=== PATIENT | female | born 1980 | race Caucasian/White ===

== ENCOUNTER 2023-03-16 21:54 | Emergency (ER) | payer OTHER, SELFPAY ==
--- NOTE | 2023-03-16 22:00 | ED.ALCOHOL ---
HPI - Alcohol General Chief Complaint: ETOH/Substance Use Stated Complaint: ETOH Time Seen by Provider: 03/16/23 21:55 Source: patient Mode of arrival: EMS Limitations: no limitations History of Present Illness HPI narrative: Patient's anxiety fibromyalgia PTSD brought by EMS she had she been paranoid about people using drugs in her building and been calling [employer] multiple times patient had few shots of alcohol tonight Related Data Allergies Allergy/AdvReac Type Severity Reaction Status Date / Time codeine [CODEINE] Allergy Mild N/V Unverified 04/26/20 19:51 Review of Systems Review of Systems: Yes all other systems are reviewed and are negative Physical Exam ED Vital Signs: Vital Signs - 24 hr 03/16/23 22:05 03/16/23 22:20 Temperature 98.6 F 98.6 F Pulse Rate 104 H 116 H Respiratory Rate 16 22 H Blood Pressure 130/93 H 138/72 Pulse Oximetry 96 98 Oxygen Delivery Method Room Air Room Air BMI result Body Mass Index 23.2 Appearance: Alert. Oriented X3. No acute distress. Tearful Eyes: PERRLA, No Nystagmus ENT: Pharynx normal. Oral Mucosa moist Neck: Normal inspection. Neck supple. CVS: Normal heart rate and rhythm. Pulses normal. Respiratory: No respiratory distress. Equal air entry bilateral, no wheezing/rales/rhonchi Abdomen: Soft and nontender. Bowel sounds are present, no mass palpable, no CVA tenderness Skin: Skin warm and dry. Normal skin color. Normal skin turgor. Extremities: No lower extremity edema. No calf tenderness Neuro: Oriented X 3. No motor deficit. No sensory deficit.No cerebellar signs , cranial nerves II-XII intact Medical Decision Making Medical Decision Making MDM Narrative: Patient feels safe to go home ambulatory in the ER will follow with criminal justice social worker about the home situation feels safe at this time Discharge Plan Discharge Clinical Impression: Adjustment disorder with anxiety Patient Disposition: Home, Self-Care Instructions: Anxiety (ED) Additional Instructions: Follow-up with your therapist and social Work
[2023-03-16 22:05] VITALS: BP 130/93; PULSE 104; RESP 16; TEMP 37; O2SAT 96
--- NOTE | 2023-03-16 22:11 | MHC.EDTECH ---
PATIENT CAME VIA EMS ,PATIENT WAS CHANGE INTO HOSPITAL ATTIRE ,,VITALS SIGN TAKEN ,PT HAD 1 EMPTY NIP BOTTLE AND 2 OPEN NIP BOTTLE ,SECURITY CAME AND THROW IT AWAY .
[2023-03-16 22:20] VITALS: BP 138/72; PULSE 116; PULSE 140; RESP 22; TEMP 37; O2SAT 98; BMI 23.2
== END 2023-03-16 23:02 | disposition home or self-care (01) ==
PROVIDERS: Emergency Provider Internal Medicine; PCP Internal Medicine
DX: F43.22 Adjustment disorder with anxiety (principal); Z72.89 Other problems related to lifestyle; Z59.89 Other problems related to housing and economic circumstances
CPT/HCPCS: 99284

== ENCOUNTER 2023-05-06 01:03 | Emergency (ER) | payer OTHER, SELFPAY ==
[2023-05-06 01:11] VITALS: BP 117/81; PULSE 89; RESP 17; TEMP 37.1; O2SAT 98; BMI 21.9
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
[2023-05-06 01:39] LABS: MANUAL DIFF FLAG NO
[2023-05-06 01:41] LABS: Basophils Percent Auto 0.5 % (0-2); Eosinophils Absolute Auto 0.1 X10*3/uL (0.0-0.4); Eosinophils Percent Auto 1.8 % (0-4); Hematocrit 39.9 % (37.0-47.0); Hemoglobin 13.6 g/dl (12.0-16.0); Imm Gran Abs Auto 0.02 X10*3/uL (0.00-0.03); Imm Gran Pct Auto 0.3 % (0.0-0.4); Lymphocytes Absolute Auto 3.8 X10*3/uL (1.2-4.9); Lymphocytes Percent Auto 47.7 % (20-40); Mean Corpuscular HGB Conc 34.1 g/dl (31.0-35.0); Mean Corpuscular Volume 99.8 fL (80.0-98.0); Mean Platelet Volume 9.9 fL (9.4-12.3); Monocytes Absolute Auto 0.5 X10*3/uL (0.1-1.2); Neutrophils Absolute Auto 3.5 x10*3/uL (2.0-8.3); Neutrophils Percent Auto 43.7 % (45-73); Platelet Count 303 X10*3/uL (160-400); Red Cell Distribution Width 14.1 % (11.0-16.0)
[2023-05-06 01:42] LABS: Appearance Urine Cloudy; Color Urine Yellow; Glucose Urine UA Negative (Negative); Leukocyte Esterase Urine Negative (Negative); Nitrite Urine Positive (Negative); PH 5.5 (5.0-9.0); UMIC TRIGGER UA YES; UPreg QC Valid YES; Urine Blood Small (1+) (Negative); Urine Ketones Negative (Negative); Urine Pregnancy NEGATIVE (NEGATIVE); Urine Protein Negative (Neg-Trace)
[2023-05-06] MEDS: LORazepam 1 MG TABLET 2 MG PO (01:48)
[2023-05-06 01:50] LABS: Bacteria Urine 4+ (None Seen); RBC Urine 0-2 /HPF (0-2); WBC Urine 0-5 /HPF (0-5)
[2023-05-06 01:54] LABS: Ethanol 318 mg/dL
[2023-05-06 01:55] LABS: Amphetamine Screen Urine Not Detected (Not Detect); Barbiturates, Urine Not Detected (Not Detect); Benzodiazepines Screen Urine Not Detected (Not Detect); Cannabinoid Screen Urine POSITIVE (Not Detect); Cocaine Screen Urine Not Detected (Not Detect); Fentanyl, urine Not Detected (Not Detect); Opiate Screen Urine Not Detected (Not Detect); Phencyclidine Screen Urine Not Detected (Not Detect)
[2023-05-06 01:55] LABS: COVID-19 Test Negative (Negative); IDNOW Serial# 08D9AD1C
[2023-05-06] MEDS: Ibuprofen 800 MG TABLET PO (01:55)
[2023-05-06 01:56] LABS: Alanine Aminotransferase 20 U/L (0-31); Albumin Level 4.7 g/dL (3.5-5.0); Alkaline Phosphatase 60 U/L (39-117); Anion Gap 15 (12-20); Aspartate Amino Transferase 34 U/L (5-31); Bilirubin Total 0.3 mg/dL (0.0-1.0); Blood Urea Nitrogen 13 mg/dL (9-16); Calcium 9.8 mg/dL (8.4-10.2); Carbon Dioxide 24 mmol/L (22-29); Chloride 108 mmol/L (96-108); Creatinine Clr Calc Pharmacy 101.7; Estimated Glomerular Filt Rate > 60; Glucose Random 101 mg/dL (60-115); Potassium 4.1 mmol/L (3.3-5.1); Sodium 143 mmol/L (135-145); Total Protein 7.9 g/dL (6.5-8.0)
--- NOTE | 2023-05-06 05:52 | PC.NURSE ---
Patient currently in bed appears sleeping, sleeping since 024, Ativan 2 mg PO administered at 0148 for comfort as ordered by provider, med rec completed/pending provider's approval, VSS, patient will be clinically sober around 0930 am, behavior argumentative, verbally abusive, and at time threatening perhaps due to ETOH on board, Care consult ordered/pending evaluation, will continue to monitor.
--- NOTE | 2023-05-06 14:21 | MHC.CARE ---
Tw completed and faxed referral to [facility]
== END 2023-05-06 10:15 | disposition home or self-care (01) ==
PROVIDERS: Emergency Provider Emergency Medicine Emergency Medical Services; PCP Internal Medicine
DX: F33.1 Major depressive disorder, recurrent, moderate (principal); F10.920 Alcohol use, unspecified with intoxication, uncomplicated; Y90.8 Blood alcohol level of 240 mg/100 ml or more; R45.851 Suicidal ideations; F60.0 Paranoid personality disorder; F41.1 Generalized anxiety disorder; F43.0 Acute stress reaction; Z20.822 Contact with and (suspected) exposure to COVID-19; Z20.828 Contact with and (suspected) exposure to other viral communicable diseases; Z79.899 Other long term (current) drug therapy
CPT/HCPCS: 36415; 80053; 80307; 81001; 81025; 85025; 87635; 99284; S9485

== ENCOUNTER 2023-05-16 02:44 | Inpatient (IN) | payer OTHER, SELFPAY ==
[2023-05-16 02:58] VITALS: BP 100/79; BP 128/88; PULSE 93; PULSE 98; RESP 18; TEMP 36.7; O2SAT 97; BMI 23.5
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
[2023-05-16 03:30] VITALS: PULSE 86
--- NOTE | 2023-05-16 03:36 | PC.NURSE ---
security at bedside. pt changed into regular hospital attire at this time, pt belongings at bedside. at bedside discussing pt care.
[2023-05-16 03:43] LABS: Alanine Aminotransferase 13 U/L (0-31); Alkaline Phosphatase 70 U/L (39-117); Anion Gap 17 (12-20); Aspartate Amino Transferase 21 U/L (5-31); Bilirubin Direct 0.1 mg/dL (0.0-0.5); Bilirubin Total 0.4 mg/dL (0.0-1.0); Blood Urea Nitrogen 13 mg/dL (9-16); C Reactive Protein 8.34 mg/dL (< or = 0.50); Carbon Dioxide 22 mmol/L (22-29); Chloride 106 mmol/L (96-108); Creatinine Clr Calc Pharmacy 114.3; Estimated Glomerular Filt Rate > 60; Glucose Random 105 mg/dL (60-115); Potassium 3.6 mmol/L (3.3-5.1); Sodium 141 mmol/L (135-145); Total Protein 7.5 g/dL (6.5-8.0)
--- NOTE | 2023-05-16 04:40 | P.HPHOSP_ITS ---
History of Present Illness Date of Service: 06/10/23 Chief Complaint: redness, swelling of right knee 42 year old female with PTSD here with pain, swelling and rendness of right knee area. She fell on a porch step last May 07 and had an abrasion that has developed into open wound and surounding redness and pain --See picture. She took some left over antibiotics yesterda but no improvment. No fever, able to walk. Labs WBC 11, CRP 8 Review of Systems 2 Review of Systems: Gen: no fever Resp: no sob, no cough CV: no chest, no MCCANN, no leg edema GI: No n/v, no abd pain Neuro: No confusion MSK: pain around right reggie Yes all other systems are reviewed and are negative [facility] Medical History (Updated 05/16/23 @ 05:15 by Van Moreno MD) PTSD (post-traumatic stress disorder) Social History Alcohol intake: current Alcohol intake frequency: a few times a month Smoked in Last 30 Days: Yes Use of substances other than those prescribed or required for medical reasons: No Advance Directives: No Advance Directives Information Provided: Yes Meds Allergies Allergy/AdvReac Type Severity Reaction Status Date / Time codeine [CODEINE] Allergy Mild N/V Verified 05/16/23 03:06 Penicillins Allergy Stomach Verified 05/16/23 03:06 Upset Active Medications: Current Medications Vancomycin HCl 1,000 mg/Vancomycin HCl 750 mg/ Sodium Chloride 535 mls @ 267.5 mls/hr IV ONCE ONE Stop: 05/16/23 05:14 Last Admin: 05/16/23 04:08 Dose: 267.5 mls/hr Pharmacy Consult (Consult Rx Vancomycin Dosing) 1 each MISCELLANE DAILY PRN PRN Reason: Consult order Home Medications Medication Instructions Recorded Confirmed Last Taken Type amitriptyline 25 mg tablet 25 mg PO BEDTIME 05/06/23 05/06/23 Unknown History meloxicam 15 mg tablet 15 mg PO DAILY PRN pain 05/06/23 05/06/23 Unknown History Physical Exam 2 Vital Signs and Narrative: Vital Signs: Last Vital Signs Temp 98.1 F 05/16/23 02:58 Pulse 86 05/16/23 03:30 Resp 18 05/16/23 02:58 BP 100/79 05/16/23 02:58 Pulse Ox 97 05/16/23 02:58 O2 Del Method Room Air 05/16/23 02:58 BMI result Body Mass Index 23.5 Const: Other: Constitutional: Alert, in no distress, overweight. Mental Status: Oriented to person, place and time. Eyes: Pupils are equal, round and reactive to light. Ear, Nose and Throat: Oropharynx clear, mucous membranes moist. Ears and nose without eformities. Trachea midline. Respiratory: Clear to auscultation. No wheezing, rales or rhonchi. Cardiovascular: S1 S2 regular. No murmurs, rubs or gallops. Gastrointestinal: Abdomen soft, non-tender, non-distended. Normal bowel sounds.? Neurologic: Cranial nerves II-XII grossly intact. No focal neurological deficits. Moves all extremities spontaneously.? Skin:/ Musculoskeletal: No cyanosis or clubbing-- Psychiatric: Normal mood and affect? Results Labs 05/16/23 03:17 05/16/23 03:17 Labs: Laboratory Results - last 24 hr 05/16/23 03:17 MCV 99.1 H MCH 33.5 H MCHC 33.8 RDW 13.8 Plt Count 417 H D MPV 9.5 Immature Gran % (Auto) 0.4 Neut % (Auto) 66.3 Lymph % (Auto) 26.8 Rowan % (Auto) 5.4 Eos % (Auto) 0.8 Baso % (Auto) 0.3 Lymph # (Auto) 3.0 Rowan # (Auto) 0.6 Eos # (Auto) 0.1 Baso # (Auto) 0.0 Abs Immat Gran (auto) 0.04 H Absolute Neuts (auto) 7.5 Absolute Nucleated RBC 0.000 Nucleated RBC % (auto) 0.0 ESR 55 H Anion Gap 17 Estim Creat Clear Calc 114.3 Estimated GFR > 60 Random Glucose 105 Lactic Acid 2.2 H* Calcium 9.0 D Total Bilirubin 0.4 Direct Bilirubin 0.1 AST 21 ALT 13 Alkaline Phosphatase 70 C-Reactive Protein 8.34 H Total Protein 7.5 Albumin 4.0 Assessment and Plan (1) Cellulitis: Qualifiers: Site of cellulitis of extremity: lower extremity Laterality: right Status: Acute Plan 42/F with cellulitis around right knee post fall Plan: Ortho to assess for need for joint aspiration, IV Vanco and Zosyn (started 05/16), cultures pending. does not meet sepsis criteria PTSD--suppose to be on elavil but doesn't take it DVT prophylaxis: Lovenox 2 midnights stay for cellulitis of the knee Time Spent With Patient Time: Total time managing care of this patient today ____ minutes. Quality Stroke Does the patient have a stroke diagnosis?: No VTE Prior VTE?: No VTE Risk Level:: Medical - moderate - high VTE Device Contraindication: Treatment Not Indicated VTE Drug Contraindication: N/A - Med Ordered
--- NOTE | 2023-05-16 04:59 | PC.NURSE ---
admission doctor at bedside discussing pt care.
--- NOTE | 2023-05-16 05:58 | PC.NURSE ---
critical result reported for pt, lactic acid 2.1. notified. no new orders at this time.
[2023-05-16 06:37] VITALS: BP 98/68; PULSE 98; RESP 20; TEMP 37.2; O2SAT 96
--- NOTE | 2023-05-16 06:40 | PC.NURSE ---
report given to mandy on S3.
--- NOTE | 2023-05-16 06:59 | PHA.PROG ---
Admission Date/Time: May 16, 2023 05:19 Indication: skin/skin structure Weight in k.1 kg Adjusted body weight in Kg: [place] body weight in Kg: Obesity Dosing Indication % IBW: Serum Creatinine - Last 168 Hours 05/16/23 03:17 Creatinine 0.60 Estimated CrCl and GFR - Last 168 Hours 05/16/23 03:17 Estim Creat Clear Calc 114.3 Estimated GFR > 60 Vancomycin Loading Dose: 1750 Current Vancomycin Dosing Regimen: 1250 q12h Vancomycin Monitoring using AUC goal of 400 - 600 range with trough as surrogate marker: auc 529, trough 15 Date and Time for next Vancomycin Level to be drawn: 05/17 @1400 Pharmacist Comments on Vancomycin Plan: Vancomycin dosing will take advantage of [employer] as a clinical decision support tool that uses Bayesian modeling to calculate individual patient's pharmacokinetic parameters and forecast the patient's drug concentration time course with the target goal AUC 24 range of 400 - 600 mg/L/hr.
--- NOTE | 2023-05-16 07:36 | PC.NURSE ---
pt has $600 vee. In [facility] logo envelope, at bedside. Will send up with pt to be secured on floor.
[2023-05-16 08:00] VITALS: BP 128/80; PULSE 96; RESP 18; TEMP 36.6; O2SAT 97
--- NOTE | 2023-05-16 08:55 | PM.EVENT ---
Event Note Date of Service: 05/16/23 Event Note: Dr. Smyth was available to see the patient this morning. Plan: Septic bursitis Cont. IV abx Wound care as appropriate No surgical intervention warranted at this time formal note to follow Time Spent With Patient Time: Total time managing care of this patient today ____ minutes.
[2023-05-16 09:03] VITALS: BMI 23.7
--- NOTE | 2023-05-16 09:50 | PHA.MEDREC ---
Pharmacy Consult ? Medication Reconciliation Pharmacy has completed the medication reconciliation. Per patient, they stopped taking amitriptyline 2 weeks ago because they didn't like the way it made me feel . They stated to have told their doctor the same information.
--- NOTE | 2023-05-16 13:44 | W.PM.IDCN ---
History of Present Illness Data of Consult Service Date: 05/16/23 Requesting physician: Love Kevin Primary Care Provider: Ihsan Argueta MD HPI Reason for consult: left knee erythema She fell nine days ago from stair onto brick cobblestone walkway and shows me pictures of walkway. She fell onto left knee and had redness and open abrasion. She was using antimicrobial cream repeatedly to area. She has no fever but has chills. She said redness ascended up leg from knee and became more painful. She took two days of nieces Amoxicillin and came to ER. XR shows patellar swelling. Review of Systems Review of Systems: Yes all other systems are reviewed and are negative PMFSH Past Medical History Medical History PTSD (post-traumatic stress disorder) Family History Family history: reviewed and not pertinent Social History Social History Household Members: Family Household Members Other:: Son Housing: Apartment Do you presently have visiting nurse or other home services: No Alcohol intake: current Alcohol intake frequency: a few times a month Patient Tobacco Use Status: Current everyday Tobacco user Tobacco use type: Cigarette Cigarettes Per Day: 10 Smoked in Last 30 Days: Yes e-Cigarette/Vaping Use: Never Used Patient Interested in Nicotine Replacement: Yes Patient Given Instructions on How to Stop Smoking: Yes Date Education Initiated: 05/16/23 Second Hand Smoke Exposure: Yes Use of substances other than those prescribed or required for medical reasons: Yes Substance Use Type: Marijuana Substance Use Frequency: Occasionally Last Used Substance: Weeks (ago) Currently Displaying Signs/Symptoms of Drug Intoxication Withdrawal: No Any prior treatment program specific to substance use: No Have you been hit, kicked, punched, or otherwise hurt by someone within the past year? If so, by whom?: No Do you feel safe in your current relationship?: Yes Is there a partner from a previous relationship who is making you feel unsafe now?: No Are you made to feel afraid or neglected: No Advance Directives: No Advance Directives Information Provided: Yes Do you have thoughts of harming others: None Do you have a plan to hurt others: No Plan Recently lost weight without trying: No Eating poorly because of decreased appetite: No Nutrition Risks: No Nutritional Risk Patient : No : No Poor oral hygiene: No Meds Allergies Allergy/AdvReac Type Severity Reaction Status Date / Time codeine [CODEINE] Allergy Mild N/V Verified 05/16/23 03:06 Penicillins Allergy Stomach Verified 05/16/23 03:06 Upset Active Medications: Current Medications Acetaminophen (Acetaminophen 325 Mg Tablet) 650 mg PO Q6H PRN PRN Reason: Pain, Mild (Pain Scale 1-3) Enoxaparin Sodium (Enoxaparin Sodium 40 Mg/0.4 Ml Syringe) 40 mg SUBCUT DAILY [facility] Last Admin: 05/16/23 08:45 Dose: 40 mg Piperacillin Sod/Tazobactam (Sod 3.375 gm/ Sodium Chloride) 50 mls @ 100 mls/hr IV Q6H [facility] Last Infusion: 05/16/23 09:43 Dose: Infused Vancomycin HCl 1,250 mg/ (Sodium Chloride) 250 mls @ 166.667 mls/hr IV Q12H [facility] Magnesium Hydroxide (Milk Of Magnesia 30 Ml Oral.Susp) 30 ml PO DAILY PRN PRN Reason: Constipation Melatonin (Melatonin 3 Mg Tablet) 6 mg PO BEDTIME PRN PRN Reason: Insomnia Morphine Sulfate (Morphine Sulfate 4 Mg/Ml Cartridge) 2 mg IVPUSH Q6H PRN; Protocol PRN Reason: Pain, Severe (Pain Scale 7-10) Last Admin: 05/16/23 08:56 Dose: 2 mg Nicotine (Nicotine 21 Mg Patch.Td24) 21 mg TRANSDERMA DAILY [facility] Last Admin: 05/16/23 09:47 Dose: Not Given Ondansetron HCl (Ondansetron Hcl 4 Mg/2 Ml Vial) 4 mg IVPUSH Q8H PRN PRN Reason: Nausea and Vomiting Last Admin: 05/16/23 08:56 Dose: 4 mg Pharmacy Consult (Consult Rx Vancomycin Dosing) 1 each MISCELLANE DAILY PRN PRN Reason: Consult order Sodium Chloride (0.9 % Sodium Chloride Flush 3 Ml Syringe) 3 ml IVFLUSH QSHIFT [facility] Last Admin: 05/16/23 08:46 Dose: 3 ml Home Medications Medication Instructions Recorded Confirmed Last Taken Type meloxicam 15 mg tablet 15 mg PO DAILY PRN pain 05/06/23 05/16/23 2 Weeks Ago History ~05/02/23 acetaminophen 500 mg tablet 1,000 mg PO Q6H PRN Pain 05/16/23 05/16/23 2 Weeks Ago History ~05/02/23 ibuprofen 200 mg tablet 400 mg PO Q8H PRN Pain 05/16/23 05/16/23 2 Weeks Ago History ~05/02/23 tizanidine 2 mg tablet 2 mg PO Q8H PRN low back pain 05/16/23 05/16/23 2 Weeks Ago History ~05/02/23 Physical Exam Vital Signs: Vital Signs: Last Vital Signs Temp 97.8 F 05/16/23 08:00 Pulse 96 05/16/23 08:00 Resp 18 05/16/23 08:00 BP 128/80 05/16/23 08:00 Pulse Ox 97 05/16/23 08:00 O2 Del Method Room Air 05/16/23 08:00 BMI result Body Mass Index 23.7 Const: General: cooperative HEENT: Head: Yes normal to inspection Face and sinus: Yes normal facial exam Mouth: Normal oral and palatal mucosa present Teeth and gingiva: dentition normal Eyes: General: appearance normal, both eyes and all related structures Pupils: Equal, round and reactive pupils present Resp: Effort & Inspection: normal respiratory effort Cardio: Rate: regular rate Rhythm: regular rhythm GI: Palpation (GI): Soft to palpation and nontender : General: Yes no CVA tenderness Back/Spine/Pelvis: Back: no CVA tenderness Skin: General skin exam: no rashes or lesions noted Neuro: General: moves all extremities Cranial nerves: Yes Equal, round and reactive pupils present Extrem: Other: left knee area reddened and cellulitic surrounding knee and extending 5 cm up leg open area laterally serous drainage Psych: Appearance: grossly normal Results Labs 05/16/23 03:17 05/16/23 03:17 Labs: Short CBC 05/16/23 Range/Units 03:17 WBC 11.3 H (4.8-10.8) X10*3/uL Hgb 11.1 L (12.0-16.0) g/dl Hct 32.8 L (37.0-47.0) % Plt Count 417 H D (160-400) X10*3/uL BMP 05/16/23 03:17 Sodium 141 Potassium 3.6 Chloride 106 Carbon Dioxide 22 BUN 13 Creatinine 0.60 Calcium 9.0 D Liver Function 05/16/23 Range/Units 03:17 Total Bilirubin 0.4 (0.0-1.0) mg/dL Direct Bilirubin 0.1 (0.0-0.5) mg/dL AST 21 (5-31) U/L ALT 13 (0-31) U/L Alkaline Phosphatase 70 (39-117) U/L Albumin 4.0 (3.5-5.0) g/dL Assessment and Plan (1) Cellulitis: Qualifiers: Laterality: right Site of cellulitis of extremity: lower extremity Status: Acute There is likely polymicrobial sravanthi after exposure to plant life around brick area she fell on. Anerobes,gram negative and gram positive including staph can be possible. All PCN is GI upset Plan Continue Vancomycin and piperacillin/tazobactam and Vancomycin for now. Await any cultures Possible po Doxycycline or Levaquin and Flagyl as outpatient for 14 day outpatient. Ortho or Surgery eval prn need. Time Spent With Patient Time: Total time managing care of this patient today ____ minutes.
--- NOTE | 2023-05-16 13:59 | HO.PM.IMPN ---
Subjective Subjective Date of Service: 05/16/23 Interval History: seen and examined this morning follow up for cellulitis reporting pain and decreased ROM at left knee denies fever or chills Review of Systems Review of Systems: Yes all other systems are reviewed and are negative Constitutional Constitutional: Denies chills and Denies fever(s) Cardiovascular Cardiovascular: Denies chest pain, Denies palpitations and Denies dyspnea Respiratory Respiratory: Denies cough and Denies dyspnea Gastrointestinal Gastrointestinal: Denies abdominal pain, Denies nausea and Denies vomiting Endocrine Endocrine: Denies palpitations Physical Exam Vital Signs: Vital Signs: Last Vital Signs Temp 97.8 F 05/16/23 08:00 Pulse 96 05/16/23 08:00 Resp 18 05/16/23 08:00 BP 128/80 05/16/23 08:00 Pulse Ox 97 05/16/23 08:00 O2 Del Method Room Air 05/16/23 08:00 BMI result Body Mass Index 23.7 Const: General: cooperative, comfortable, no acute distress, alert and awake Nutritional Appearance: average body habitus Orientation/consciousness: patient oriented x3 Resp: Effort & Inspection: normal respiratory effort, able to speak in complete sentences, no respiratory distress and no use of accessory muscles Cardio: Rate: regular rate Heart sounds: S1 normal heart sound present and S2 normal heart sound present GI: Inspection: No distended Palpation (GI): Soft to palpation and nontender Skin: Other: left leg warm, tender, decreased ROM Neuro: General: patient oriented x3, moves all extremities and CN's II-XI intact bilaterally Extrem: General: Yes no pedal edema Objective Data Active Medications Acetaminophen (Acetaminophen 325 Mg Tablet) 650 mg PO Q6H PRN PRN Reason: Pain, Mild (Pain Scale 1-3) Enoxaparin Sodium (Enoxaparin Sodium 40 Mg/0.4 Ml Syringe) 40 mg SUBCUT DAILY [facility] Last Admin: 05/16/23 08:45 Dose: 40 mg Documented By: COTEMA Piperacillin Sod/Tazobactam (Sod 3.375 gm/ Sodium Chloride) 50 mls @ 100 mls/hr IV Q6H [facility] Last Infusion: 05/16/23 09:43 Dose: Infused Documented By: COTEMA Vancomycin HCl 1,250 mg/ (Sodium Chloride) 250 mls @ 166.667 mls/hr IV Q12H [facility] Magnesium Hydroxide (Milk Of Magnesia 30 Ml Oral.Susp) 30 ml PO DAILY PRN PRN Reason: Constipation Melatonin (Melatonin 3 Mg Tablet) 6 mg PO BEDTIME PRN PRN Reason: Insomnia Morphine Sulfate (Morphine Sulfate 4 Mg/Ml Cartridge) 2 mg IVPUSH Q6H PRN; Protocol PRN Reason: Pain, Severe (Pain Scale 7-10) Last Admin: 05/16/23 08:56 Dose: 2 mg Documented By: SUSIE Nicotine (Nicotine 21 Mg Patch.Td24) 21 mg TRANSDERMA DAILY [facility] Last Admin: 05/16/23 09:47 Dose: Not Given Documented By: SUSIE Non-Admin Reason: pt already wearing one Ondansetron HCl (Ondansetron Hcl 4 Mg/2 Ml Vial) 4 mg IVPUSH Q8H PRN PRN Reason: Nausea and Vomiting Last Admin: 05/16/23 08:56 Dose: 4 mg Documented By: SUSIE Pharmacy Consult (Consult Rx Vancomycin Dosing) 1 each MISCELLANE DAILY PRN PRN Reason: Consult order Sodium Chloride (0.9 % Sodium Chloride Flush 3 Ml Syringe) 3 ml IVFLUSH QSHIFT [facility] Last Admin: 05/16/23 08:46 Dose: 3 ml Documented By: SUSIE Labs 05/16/23 03:17 05/16/23 03:17 Labs: Laboratory Results - last 24 hr 05/16/23 05/16/23 03:17 05:37 MCV 99.1 H MCH 33.5 H MCHC 33.8 RDW 13.8 Plt Count 417 H D MPV 9.5 Immature Gran % (Auto) 0.4 Neut % (Auto) 66.3 Lymph % (Auto) 26.8 [place] % (Auto) 5.4 Eos % (Auto) 0.8 Baso % (Auto) 0.3 Lymph # (Auto) 3.0 [place] # (Auto) 0.6 Eos # (Auto) 0.1 Baso # (Auto) 0.0 Abs Immat Gran (auto) 0.04 H Absolute Neuts (auto) 7.5 Absolute Nucleated RBC 0.000 Nucleated RBC % (auto) 0.0 ESR 55 H Anion Gap 17 Estim Creat Clear Calc 114.3 Estimated GFR > 60 Random Glucose 105 Lactic Acid 2.2 H* Lactic Acid F/U @ 2Hr 2.1 H* Calcium 9.0 D Total Bilirubin 0.4 Direct Bilirubin 0.1 AST 21 ALT 13 Alkaline Phosphatase 70 C-Reactive Protein 8.34 H Total Protein 7.5 Albumin 4.0 Assessment and Plan (1) Cellulitis: Status: Acute Plan This is 42/F who presents to the ED with increasing pain and erythema of left knee/leg after she fell hitting her knee on brick pavers on 05/06 Cellulitis of left leg with possible involvement of bursa does not meet sepsis criteria Ortho to assess for need for joint aspiration Continue IV Vanco and Zosyn (started 05/16) seen by ID - further recommendations based on culture results blood cultures pending tobacco dependence smoking cessation advised NRT PTSD--suppose to be on elavil but doesn't take it DVT prophylaxis: Ivette attending - Dr. Jara ongoing admission for cellulitis of the knee requiring IV antibiotics, specialist evaluation Time Spent With Patient Time: Total time managing care of this patient today ____ minutes. Quality Stroke Does the patient have a stroke diagnosis?: No VTE Prior VTE?: No VTE Risk Level:: Medical - moderate - high VTE Device Contraindication: Treatment Not Indicated VTE Drug Contraindication: N/A - Med Ordered
[2023-05-16 15:03] VITALS: BP 114/66; PULSE 95; RESP 16; TEMP 37; O2SAT 97
--- NOTE | 2023-05-16 16:29 | MHC.CM.PN ---
PT REPORTS SHE LIVES WITH HER SON AND IS INDEPENDENT WITH CARE SHE REPORTS SHE USES NO DME AND NO SERVICES SHE IS CONCERNED SHE MAY NEED AN ASSISTIVE DEVICE AT DC SHE STATES SHE [place]ES [address] BUT HAS BEEN STAYING WITH HER BF SHE CANNOT GET UP THE STAIRS SHE STATES SHE HAS A HCP NAMING HER SON, AMAURI, THE AGENT. COPY REQUESTED PCP: MINH TOURE DCP: HOME NO SERVICES ? [facility]
[2023-05-16 20:00] VITALS: BP 112/72; PULSE 76; RESP 18; TEMP 36.4; O2SAT 97
[2023-05-17 03:17] VITALS: BP 107/60; PULSE 71; RESP 18; TEMP 36.2; O2SAT 95
[2023-05-17 06:06] LABS: Creatinine Clr Calc Pharmacy 103.9; Estimated Glomerular Filt Rate > 60
[2023-05-17 08:00] VITALS: BP 124/75; PULSE 94; RESP 16; RESP 18; TEMP 36.4; O2SAT 96
--- NOTE | 2023-05-17 11:44 | HO.PM.IMPN ---
Subjective Subjective Date of Service: 05/17/23 Interval History: seen and examined this morning follow up for left knee cellulitis no overnight events swelling and erythema improving able to bend knee a little more today Review of Systems Review of Systems: Yes all other systems are reviewed and are negative Constitutional Constitutional: Denies chills and Denies fever(s) Cardiovascular Cardiovascular: Denies chest pain, Denies palpitations and Denies dyspnea Respiratory Respiratory: Denies cough and Denies dyspnea Gastrointestinal Gastrointestinal: Denies abdominal pain, Denies nausea and Denies vomiting Endocrine Endocrine: Denies palpitations Physical Exam Vital Signs: Vital Signs: Last Vital Signs Temp 97.6 F 05/17/23 08:00 Pulse 94 05/17/23 08:00 Resp 16 05/17/23 08:00 BP 124/75 05/17/23 08:00 Pulse Ox 96 05/17/23 08:00 O2 Del Method Room Air 05/17/23 08:00 BMI result Body Mass Index 23.7 Const: General: cooperative, comfortable, no acute distress, alert and awake Nutritional Appearance: average body habitus Orientation/consciousness: patient oriented x3 Resp: Effort & Inspection: normal respiratory effort, able to speak in complete sentences, no respiratory distress and no use of accessory muscles Cardio: Rate: regular rate Heart sounds: S1 normal heart sound present and S2 normal heart sound present GI: Inspection: No distended Palpation (GI): Soft to palpation and nontender Skin: Other: erythema and swelling of left leg improving; some serosanguenous drainage noted, no fluctuance Neuro: General: patient oriented x3, moves all extremities and CN's II-XI intact bilaterally Extrem: General: Yes no pedal edema Objective Data Active Medications Acetaminophen (Acetaminophen 325 Mg Tablet) 650 mg PO Q6H PRN PRN Reason: Pain, Mild (Pain Scale 1-3) Last Admin: 05/16/23 21:30 Dose: 650 mg Documented By: EARL Enoxaparin Sodium (Enoxaparin Sodium 40 Mg/0.4 Ml Syringe) 40 mg SUBCUT DAILY [facility] Last Admin: 05/17/23 08:01 Dose: Not Given Documented By: COTEMA Non-Admin Reason: pre procuedure? Piperacillin Sod/Tazobactam (Sod 3.375 gm/ Sodium Chloride) 50 mls @ 100 mls/hr IV Q6H [facility] Last Infusion: 05/17/23 08:46 Dose: Infused Documented By: SUSIE Vancomycin HCl 1,250 mg/ (Sodium Chloride) 250 mls @ 166.667 mls/hr IV Q12H [facility] Last Infusion: 05/17/23 05:28 Dose: Infused Documented By: EARL Magnesium Hydroxide (Milk Of Magnesia 30 Ml Oral.Susp) 30 ml PO DAILY PRN PRN Reason: Constipation Melatonin (Melatonin 3 Mg Tablet) 6 mg PO BEDTIME PRN PRN Reason: Insomnia Last Admin: 05/16/23 21:31 Dose: 6 mg Documented By: EARL Morphine Sulfate (Morphine Sulfate 4 Mg/Ml Cartridge) 2 mg IVPUSH Q6H PRN; Protocol PRN Reason: Pain, Severe (Pain Scale 7-10) Last Admin: 05/17/23 08:00 Dose: 2 mg Documented By: SUSIE Nicotine (Nicotine 21 Mg Patch.Td24) 21 mg TRANSDERMA DAILY [facility] Last Admin: 05/17/23 08:01 Dose: 21 mg Documented By: SUSIE Ondansetron HCl (Ondansetron Hcl 4 Mg/2 Ml Vial) 4 mg IVPUSH Q8H PRN PRN Reason: Nausea and Vomiting Last Admin: 05/17/23 08:01 Dose: 4 mg Documented By: SUSIE Pharmacy Consult (Consult Rx Vancomycin Dosing) 1 each MISCELLANE DAILY PRN PRN Reason: Consult order Sodium Chloride (0.9 % Sodium Chloride Flush 3 Ml Syringe) 3 ml IVFLUSH QSHIFT [facility] Last Admin: 05/17/23 08:01 Dose: 3 ml Documented By: SUSIE Labs 05/17/23 05:15 05/17/23 05:15 Labs: Laboratory Results - last 24 hr 05/17/23 05:15 MCV 99.7 H MCH 33.2 H MCHC 33.3 RDW 13.9 Plt Count 424 H MPV 10.0 Absolute Nucleated RBC 0.000 Nucleated RBC % (auto) 0.0 Estim Creat Clear Calc 103.9 Estimated GFR > 60 Microbiology Microbiology Results: Microbiology 05/16/23 03:19 Blood Culture - Preliminary Blood - Venous No growth after 24 hours. 05/16/23 03:17 Blood Culture - Preliminary Blood - Venous No growth after 24 hours. Assessment and Plan (1) Cellulitis: Status: Acute Plan This is 42/F who presents to the ED with increasing pain and erythema of left knee/leg after she fell hitting her knee on brick pavers on 05/06 Cellulitis of left leg with possible involvement of bursa does not meet sepsis criteria Ortho following Continue IV Vanco and Zosyn (started 05/16) seen by ID - further recommendations based on culture results blood cultures negative to date tobacco dependence smoking cessation advised NRT chronic anemia above transfusion threshold PTSD-suppose to be on elavil but doesn't take it DVT prophylaxis: Ivette attending - Dr. Hudson ongoing admission for cellulitis of the knee requiring IV antibiotics, specialist evaluation Time Spent With Patient Time: Total time managing care of this patient today ____ minutes. Quality Stroke Does the patient have a stroke diagnosis?: No VTE Prior VTE?: No VTE Risk Level:: Medical - moderate - high VTE Device Contraindication: Treatment Not Indicated VTE Drug Contraindication: N/A - Med Ordered
--- NOTE | 2023-05-17 14:37 | PM.PNORT ---
Subjective Subjective Date of Service: 05/17/23 Principal diagnosis: left anterior knee pain. She can walk but painful to bend Physical Exam Vital Signs: Vital Signs: Last Vital Signs Temp 97.6 F 05/17/23 08:00 Pulse 94 05/17/23 08:00 Resp 16 05/17/23 08:00 BP 124/75 05/17/23 08:00 Pulse Ox 96 05/17/23 08:00 O2 Del Method Room Air 05/17/23 08:00 BMI result Body Mass Index 23.7 Extrem: Other: Septic prepatellar bursa with open wounc over proiximal patellar tendon No pain with passive ROM from 0-45 but more flexion casues bursal pain No effusion Procedures Date of Service Date of Service: 05/17/23 Abscess I/D Consent for Procedure: Elective - informed consent obtained Site: lower extremity Side (if applicable): left Sedation/analgesia: none Technique: other (stab incision with 10 blade) Amount of fluid (mL): 5 Irrigation: Yes Packing used?: plain Additional comments: Purulent discharge obtained Progress Note: A&P Assessment and plan (1) Septic infrapatellar bursitis of left knee: Status: Acute Assessment and Plan: Left knee septic bursitis with abcess. Incised and washed. WTD TID with warm soapy water soaks as tolerated. COntinue IOV abx and home pending clinical improvement Time Spent With Patient Time: Total time managing care of this patient today ____ minutes. Quality Stroke Does the patient have a stroke diagnosis?: No VTE Prior VTE?: No VTE Risk Level:: Medical - moderate - high VTE Device Contraindication: Treatment Not Indicated VTE Drug Contraindication: N/A - Med Ordered
[2023-05-17 15:25] VITALS: BP 111/77; PULSE 86; RESP 18; TEMP 36.9; O2SAT 98
--- NOTE | 2023-05-17 18:31 | PM.DS ---
DS: Providers Provider Date of Service: 05/17/23 Date of admission: 05/16/23 05:19 Date of discharge: 05/17/23 Primary care physician: Ihsan Argueta MD Consults: 05/16/23 05:22 Consult to Infectious Diseases Routine Consulting Provider: [facility] [place] Reason for consultation: knee cellulitis Has provider been notified: No Consult to Orthopedics Routine Consulting Provider: [facility] [place] [facility] Reason for consultation: Cellulitis of knee ? need for aspiration Attending physician on discharge: Ca Hudson Discharging clinician: Love Kevin DS: Diagnosis Discharge Diagnosis (1) Septic infrapatellar bursitis of left knee: Status: Acute DS: Summary Hospital Course Hospital Course: From H&P on day of admission 42 year old female with PTSD here with pain, swelling and rendness of right knee area. She fell on a porch step last May 07 and had an abrasion that has developed into open wound and surounding redness and pain --See picture. She took some left over antibiotics yesterda but no improvment. No fever, able to walk. Labs WBC 11, CRP 8 left leg cellulitis and septic bursitis Patient was admitted for left knee cellulitis stemming from a trip and fall last week resulting in a knee abrasion. She did not meet sepsis criteria. She was treated with broad spectrum IV antibiotics. She was seen by ortho and noted to have septic bursitis requiring bedside I&D on 05/17. Patient's erythema and swelling was beginning to improve. Today, due a family issue, she elected to leave against medical advise. She was advised to stay in the hospital to received IV antibiotics. She understands the po antibiotics are not a substitute for IV antibiotics and that her infection could worsen without proper care. She was able to verbalize her understanding and She is encouraged to return to the ED with any worsening redness, swelling or drainage. Time Spent with Patient Time attestation: Total time managing care of this patient today ____ minutes. Discharge coordination time: Greater than 30 minutes Quality: Safe Use of Opioids Does Pt have an Active Cancer Diagnosis on the Problem List?: No Quality: Stroke Does the patient have a stroke diagnosis?: No Physical Exam Vital Signs: Vital Signs: Last Vital Signs Temp 98.5 F 05/17/23 15:25 Pulse 86 05/17/23 15:25 Resp 18 05/17/23 15:25 BP 111/77 05/17/23 15:25 Pulse Ox 98 05/17/23 15:25 O2 Del Method Room Air 05/17/23 15:25 BMI result Body Mass Index 23.7 Const: General: cooperative, comfortable, no acute distress, alert and awake Nutritional Appearance: average body habitus Orientation/consciousness: patient oriented x3 Resp: Effort & Inspection: normal respiratory effort, able to speak in complete sentences, no respiratory distress and no use of accessory muscles Cardio: Rate: regular rate Heart sounds: S1 normal heart sound present and S2 normal heart sound present GI: Inspection: No distended Palpation (GI): Soft to palpation and nontender Skin: Other: erythema and swelling of left leg improving; some serosanguenous drainage noted, no fluctuance Neuro: General: patient oriented x3, moves all extremities and CN's II-XI intact bilaterally Extrem: General: Yes no pedal edema DS: Data Data Completed and Pending Labs on day of discharge: Laboratory Results - last 24 hr 05/17/23 05/17/23 05:15 14:35 WBC 7.2 RBC 3.13 L Hgb 10.4 L Hct 31.2 L MCV 99.7 H MCH 33.2 H MCHC 33.3 RDW 13.9 Plt Count 424 H MPV 10.0 Absolute Nucleated RBC 0.000 Nucleated RBC % (auto) 0.0 Creatinine 0.66 Estim Creat Clear Calc 103.9 Estimated GFR > 60 Vancomycin Trough 8.4 L Preliminary micro results at discharge 05/16/23 03:19 Blood Culture - Preliminary Blood - Venous No growth after 24 hours. 05/16/23 03:17 Blood Culture - Preliminary Blood - Venous No growth after 24 hours. Discharge Plan Discharge Anticipated Discharge Date/Time: 05/17/23 18:09 Patient Disposition: Left Against Medical Advice Discharge Diagnosis: cellulitis, septic bursitis left knee Referrals: Ihsan Argueta MD [Primary Care Provider] - 1 Week Discharge Medications: New cephalexin 500 mg capsule 500 mg PO QID Qty: 40 0RF doxycycline hyclate 100 mg tablet 100 mg PO BID Qty: 20 0RF Rx Instructions: Take with food and full glass of water. Do not lay down for 30 minutes after taking nicotine 21 mg/24 hr Patch 24 Hour 21 mg transdermal DAILY Qty: 30 3RF Continued meloxicam 15 mg tablet 15 mg PO DAILY PRN (Reason: pain) tizanidine 2 mg tablet 2 mg PO Q8H PRN (Reason: low back pain) acetaminophen 500 mg Tablet 1,000 mg PO Q6H PRN (Reason: Pain) Rx Instructions: alternates with ibuprofen ibuprofen 200 mg Tablet 400 mg PO Q8H PRN (Reason: Pain) Rx Instructions: alternates with tylenol Discharge Orders: Discharge Order (Routine); Ordered 05/17/23 Ordered By: Jadyn Lazar Diet: Advance to usual diet Activity on Discharge: As tolerated Care Plan Goals: You are leaving against medical advice. Further inpatient treatment with IV antibiotics is recommended for further treatment of cellulitis and septic bursitis of the left knee. You have been advised that oral antibiotics may not resolve this infection. Your infection could worsen resulting in sepsis, bacteremia (blood infection), or . -Take doxycycline 100 mg twice daily with food and a full glass of water as well as cephalexin 500 mg 4 times daily for 10 days. Do not skip or miss any doses -return to the ED for any worsening redness, warmth, pain, swelling, or fevers Health Concerns: Cellulitis left knee Septic bursitis left knee Plan of Treatment: As above Assessment: As above
== END 2023-05-17 19:59 | disposition left against medical advice (07) | DRG 351 ==
LOC: HO.ED 04:38 → HO.EDOVER 05:32 → HO.S3 06:24
PROVIDERS: Admitting Provider Internal Medicine; Emergency Provider Emergency Medicine; PCP Internal Medicine; Visit Provider Physician Assistant Medical
DX: M71.162 Other infective bursitis, left knee (principal); L03.115 Cellulitis of right lower limb; D64.9 Anemia, unspecified; F43.10 Post-traumatic stress disorder, unspecified; F17.210 Nicotine dependence, cigarettes, uncomplicated; T43.016A Underdosing of tricyclic antidepressants, initial encounter; Z91.128 Patient's intentional underdosing of medication regimen for other reason; Z71.6 Tobacco abuse counseling; Z79.899 Other long term (current) drug therapy
CPT/HCPCS: 36415; 73560; 80048; 80076; 80202; 82565; 83605; 85025; 85027; 85652; 86140; 87040; 99285; J1650; J2270; J2405; J2543; J3370; J3371

== ENCOUNTER → 2023-05-16 05:19 | Outpatient (BNV) | payer OTHER, SELFPAY | PROVIDERS: Admitting Provider Internal Medicine; Emergency Provider Emergency Medicine; PCP Internal Medicine; Visit Provider Physician Assistant Medical | DX: L03.115 Cellulitis of right lower limb (principal) | CPT/HCPCS: 99223; 99233; 99239; 99499 ==

== ENCOUNTER → 2023-05-16 05:19 | Outpatient (BNV) | payer OTHER, SELFPAY | PROVIDERS: Admitting Provider Internal Medicine; Emergency Provider Emergency Medicine; PCP Internal Medicine; Visit Provider Physician Assistant | DX: M71.162 Other infective bursitis, left knee (principal); B96.89 Other specified bacterial agents as the cause of diseases classified elsewhere | CPT/HCPCS: 10060; 99232; 99499 ==

== ENCOUNTER → 2023-05-16 05:19 | Outpatient (BNV) | payer OTHER, SELFPAY | PROVIDERS: Admitting Provider Internal Medicine; Emergency Provider Emergency Medicine; PCP Internal Medicine; Visit Provider Internal Medicine | DX: L03.90 Cellulitis, unspecified (principal) | CPT/HCPCS: 99222 ==

== ENCOUNTER 2023-05-19 19:28 | Emergency (ER) | payer OTHER, SELFPAY ==
[2023-05-19 19:47] VITALS: BP 114/72; BP 119/87; PULSE 101; PULSE 108; RESP 18; TEMP 36.9; O2SAT 98; O2SAT 99; BMI 22.6
--- NOTE | 2023-05-19 20:08 | PC.NURSE ---
pt states that she wants to be seen for ptsd, depression, denies s1 or h1 pt wants to be seen by the care team. pt states she has a 5 year old son in [facility] custody that she placed. pt states she needs to go by 3 pm tomorrow for her visit with her son.
--- NOTE | 2023-05-19 20:09 | ED.GENADULT ---
HPI - General Adult General Chief complaint: General Medical Stated complaint: Left ama earlier w/cellulitis,etoh/SI at this time Time Seen by Provider: 05/19/23 20:09 History of Present Illness HPI narrative: Patient is a 42-year-old female with a history of bursitis left the hospital AMA called the ambulance tonight because she wants her knee revaluated. Patient had the left knee bursitis strain by Orthopedics. Subsequently left against medical advice she continued to be taking doxycycline at home. Complain today that patient has PTSD. Feels anxious. Patient denies any suicidal ideation. Stated that she wants to naturally. No chest pain or shortness of breath no diaphoresis. No abdominal pain. Related Data Home Medications Medication Instructions Recorded Confirmed meloxicam 15 mg tablet 15 mg PO DAILY PRN pain 05/06/23 05/16/23 acetaminophen 500 mg tablet 1,000 mg PO Q6H PRN Pain 05/16/23 05/16/23 ibuprofen 200 mg tablet 400 mg PO Q8H PRN Pain 05/16/23 05/16/23 tizanidine 2 mg tablet 2 mg PO Q8H PRN low back pain 05/16/23 05/16/23 Previous Rx's Medication Instructions Recorded cephalexin 500 mg capsule 500 mg PO QID #40 caps 05/17/23 doxycycline hyclate 100 mg tablet 100 mg PO BID #20 tabs 05/17/23 nicotine 21 mg/24 hr daily 21 mg transdermal DAILY #30 ea 05/17/23 transdermal patch Allergies Allergy/AdvReac Type Severity Reaction Status Date / Time codeine [CODEINE] Allergy Mild N/V Verified 05/16/23 03:06 Penicillins Allergy Stomach Verified 05/16/23 03:06 Upset Review of Systems Review of Systems: No fever no chills no chest pain Yes all other systems are reviewed and are negative [facility] Past Medical History Attestation statement: The following information was validated with the patient. Medical History PTSD (post-traumatic stress disorder) Social History Social History Household Members: Family Household Members Other:: Son Housing: Apartment Do you presently have visiting nurse or other home services: No Alcohol intake: current Alcohol intake frequency: a few times a month Patient Tobacco Use Status: Current everyday Tobacco user Tobacco use type: Cigarette Cigarettes Per Day: 10 e-Cigarette/Vaping Use: Never Used Second Hand Smoke Exposure: Yes Substance Use Type: Marijuana Advance Directives: No service: No Physical Exam ED Vital Signs: Vital Signs - 24 hr 05/19/23 19:47 Temperature 98.5 F Pulse Rate 101 H Respiratory Rate 18 Blood Pressure 119/87 Pulse Oximetry 99 Oxygen Delivery Method Room Air BMI result Body Mass Index 22.6 Appearance: Alert. Oriented X3. No acute distress. Eyes: Pupils equal, round and reactive to light. ENT: Pharynx normal. Neck: Normal inspection. Neck supple. No lymph nodes noted. No crepitus CVS: Normal heart rate and rhythm. Pulses normal. Normal S1 and S2 Respiratory: No respiratory distress. Breath sounds normal. No Wheezing. No rales Abdomen: Soft and nontender. No rigidity. No distention. good BS x4 Skin: Skin warm and dry. Normal skin color. Normal skin turgor. Extremities: Examination of patient's left knee showed multiple lesions over the knee. There is redness surrounding these lesions. 2 them has a granulomatous base. There is no discharge noted. Range of motion of the knee completely intact. Ambulates with a normal gait. Distal pulses intact. Sensation intact. Neuro: Oriented X 3. No motor deficit. No sensory deficit. Moving all extermities. No slurred speech Medical Decision Making Medical Decision Making MDM Narrative: Patient 42 years old signed out against medical advice 2 days ago for an infected bursitis/cellulitis. I reviewed patient's old record along with patient's culture results from that visit. Their culture results so far is negative. Patient has good range of motion over the knee. Ambulated well in the emergency department without any difficulties. She denies any suicidal ideation. Seen visibly upset. Patient stated that she wants to naturally. Look forward to seeing her son tomorrow. Patient stated she has PTSD but at this time did not want a see Care team. She ambulated and walked out of the emergency department. Explained to patient that she can come back at any time. We emphasized with her. Explained to patient the need to continue taking antibiotics. She should follow up outpatient basis. Approximately 10-15 minutes later patient decided to change her mind walk back into the emergency department to be evaluated. Will get labs. Will get care team to evaluate patient. Continue current antibiotics. APPROXIMATELY 1 HOUR LATER THE LABS WERE DRAWN. PATIENT DECIDED TO LEAVE. Walked out of the emergency department. She never had any suicidal homicidal ideations. Her labs later on revealed that she had an alcohol that was elevated. When she walked out she had a steady gait. Patient left against medical advice we were unable to give her any this charge instruction as patient stormed out of the emergency department. Differential Diagnosis Differential Diagnoses: The differential diagnosis associated with the presentation includes Septic joint, depression, anxiety, cellulitis Admission/Observation Consideration of admission/observation: Escalation of care including admission/observation considered Given patient not suicidal homicidal we cannot section patient to be evaluated. Patient walked out of the emergency department Lab Data Patient refused any blood work 05/19/23 20:42 05/19/23 20:42 Labs: Lab Results 05/19/23 05/19/23 05/19/23 Range/Units 20:42 21:21 21:22 WBC 10.5 (4.8-10.8) X10*3/uL RBC 3.63 L (4.20-5.50) X10*6/uL Hgb 12.2 (12.0-16.0) g/dl Hct 36.2 L (37.0-47.0) % MCV 99.7 H (80.0-98.0) fL MCH 33.6 H (27.0-33.0) pg MCHC 33.7 (31.0-35.0) g/dl RDW 14.2 (11.0-16.0) % Plt Count 712 H D (160-400) X10*3/uL MPV 9.2 L (9.4-12.3) fL Immature Gran % (Auto) 0.3 (0.0-0.4) % Neut % (Auto) 59.7 (45-73) % Lymph % (Auto) 35.6 (20-40) % [place] % (Auto) 3.2 (2-11) % Eos % (Auto) 0.7 (0-4) % Baso % (Auto) 0.5 (0-2) % Lymph # (Auto) 3.8 (1.2-4.9) X10*3/uL [place] # (Auto) 0.3 (0.1-1.2) X10*3/uL Eos # (Auto) 0.1 (0.0-0.4) X10*3/uL Baso # (Auto) 0.1 (0.0-0.2) X10*3/uL Abs Immat Gran (auto) 0.03 (0.00-0.03) X10*3/uL Absolute Neuts (auto) 6.3 (2.0-8.3) x10*3/uL Absolute Nucleated RBC 0.000 (0.0-0.012) X10*3/uL Nucleated RBC % (auto) 0.0 (0.0-0.2) /100WBC Sodium 147 H (135-145) mmol/L Potassium 4.1 (3.3-5.1) mmol/L Chloride 107 (96-108) mmol/L Carbon Dioxide 24 (22-29) mmol/L Anion Gap 20 (12-20) BUN 10 (9-16) mg/dL Creatinine 0.66 (0.5-1.4) mg/dL Estim Creat Clear Calc 103.9 Estimated GFR > 60 Random Glucose 103 (60-115) mg/dL Calcium 10.3 H D (8.4-10.2) mg/dL Urine Color Yellow Urine Appearance Clear Urine pH 5.5 (5.0-9.0) Ur Specific [place] 1.010 (1.005-1.025) Urine Protein Negative (Neg-Trace) mg/dL Urine Glucose (UA) Negative (Negative) mg/dL Urine Ketones Negative (Negative) mg/dL Urine Blood Negative (Negative) Urine Nitrite Negative (Negative) Ur Leukocyte Esterase Negative (Negative) Urine RBC 0-2 (0-2) /HPF Urine WBC 0-5 (0-5) /HPF Ur Squamous Epith Cells 6-10 (0-2) /HPF Urine Bacteria None Seen (None Seen) Hyaline Casts 0-2 (0-2) /LPF Urine Opiates Screen Not Detected (Not Detect) Urine Fentanyl Screen Not Detected (Not Detect) Ur Barbiturates Screen Not Detected (Not Detect) Ur Phencyclidine Scrn Not Detected (Not Detect) Ur Amphetamines Screen Not Detected (Not Detect) U Benzodiazepines Scrn Not Detected (Not Detect) Urine Cocaine Screen Not Detected (Not Detect) U Marijuana (THC) Screen POSITIVE H (Not Detect) Ethyl Alcohol 306 H* mg/dL External Record Review External record reviewed: Inpatient record Previous admission record read Prescription Management I considered prescription management with: Antibiotic Continue on doxycycline Social Determinants Patient?s care significantly limited by Social Determinants of Health including: Low income Discharge Plan Discharge Clinical Impression: Cellulitis Patient Disposition: Left Against Medical Advice Prescriptions: No Action meloxicam 15 mg tablet 15 mg PO DAILY PRN (Reason: pain) tizanidine 2 mg tablet 2 mg PO Q8H PRN (Reason: low back pain) acetaminophen 500 mg Tablet 1,000 mg PO Q6H PRN (Reason: Pain) Rx Instructions: alternates with ibuprofen ibuprofen 200 mg Tablet 400 mg PO Q8H PRN (Reason: Pain) Rx Instructions: alternates with tylenol cephalexin 500 mg capsule 500 mg PO QID Qty: 40 0RF doxycycline hyclate 100 mg tablet 100 mg PO BID Qty: 20 0RF Rx Instructions: Take with food and full glass of water. Do not lay down for 30 minutes after taking nicotine 21 mg/24 hr Patch 24 Hour 21 mg transdermal DAILY Qty: 30 3RF Interventions: ED Discharge Assessment Last Done: 05/19/23 21:37 Discharge Date/Time: 05/19/23 21:39
--- NOTE | 2023-05-19 20:11 | PC.NURSE ---
Pt left with out treatment, ambulated with a steady gait in no apparent distress, pt refusing treatment, provided resources to care team. Refusing to give blood/urine, or interchange agent. Pt left building to waiting room, and requested to come back in for treatment. pt ambulated with steady gait back into ER, with charge nurse.
--- NOTE | 2023-05-19 20:14 | PC.NURSE ---
pt just walked out of the er states she is having an anxiety. pt walked back in and is aware of the need to stay in her bed so she can be seen and treated.
[2023-05-19 20:59] LABS: Anion Gap 20 (12-20); Blood Urea Nitrogen 10 mg/dL (9-16); Calcium 10.3 mg/dL (8.4-10.2); Carbon Dioxide 24 mmol/L (22-29); Chloride 107 mmol/L (96-108); Creatinine Clr Calc Pharmacy 103.9; Estimated Glomerular Filt Rate > 60; Ethanol 306 mg/dL; Glucose Random 103 mg/dL (60-115); Potassium 4.1 mmol/L (3.3-5.1); Sodium 147 mmol/L (135-145)
== END 2023-05-19 21:39 | disposition left against medical advice (07) ==
PROVIDERS: Emergency Provider Emergency Medicine Emergency Medical Services
DX: M70.52 Other bursitis of knee, left knee (principal); L03.116 Cellulitis of left lower limb; R45.851 Suicidal ideations; F41.9 Anxiety disorder, unspecified; F43.10 Post-traumatic stress disorder, unspecified; F17.210 Nicotine dependence, cigarettes, uncomplicated; F10.129 Alcohol abuse with intoxication, unspecified; Y90.8 Blood alcohol level of 240 mg/100 ml or more; Z79.899 Other long term (current) drug therapy; Z71.6 Tobacco abuse counseling
CPT/HCPCS: 36415; 80048; 80307; 81001; 85025; 93005; 99282; 99283

== ENCOUNTER 2023-05-20 21:38 | Emergency (ER) | payer OTHER, SELFPAY ==
--- NOTE | ~2023-05-20 | US_ITS ---
EXAMINATION: US VENOUS WITH DOPPLER UPPER EXTREMITY, LEFT CLINICAL INFORMATION: Edema and swelling COMPARISON: None available. TECHNIQUE: Ultrasound of the upper extremity is performed using compression sonography and color and pulse Doppler flow with assessment of augmentation of flow. There is also imaging and Doppler assessment of the jugular and subclavian veins. Spectral analysis with color-flow imaging is performed. FINDINGS: Respiratory variation, normal compression, and augmented flow are noted throughout the upper extremity including the axillary, brachial, cubital, and radial and ulnar veins. There is normal flow in the internal jugular and subclavian veins. Thrombus present within the mid and distal cephalic vein. US/US venous duplex UE LT IMPRESSION: * No DVT demonstrated in the left upper extremity. * Superficial thrombophlebitis involving the mid and distal cephalic vein.
[2023-05-20 21:58] VITALS: BP 132/79; PULSE 85; RESP 18; TEMP 36.6; O2SAT 97; BMI 21.9
[2023-05-20 22:26] LABS: MANUAL DIFF FLAG NO
[2023-05-20 22:35] LABS: Basophils Percent Auto 0.5 % (0-2); Eosinophils Absolute Auto 0.1 X10*3/uL (0.0-0.4); Eosinophils Percent Auto 0.6 % (0-4); Hematocrit 34.2 % (37.0-47.0); Hemoglobin 11.7 g/dl (12.0-16.0); Imm Gran Abs Auto 0.01 X10*3/uL (0.00-0.03); Imm Gran Pct Auto 0.1 % (0.0-0.4); Lymphocytes Absolute Auto 3.1 X10*3/uL (1.2-4.9); Lymphocytes Percent Auto 37.6 % (20-40); Mean Corpuscular HGB Conc 34.2 g/dl (31.0-35.0); Mean Corpuscular Volume 99.4 fL (80.0-98.0); Mean Platelet Volume 9.5 fL (9.4-12.3); Monocytes Absolute Auto 0.4 X10*3/uL (0.1-1.2); Monocytes Percent Auto 4.2 % (2-11); Neutrophils Absolute Auto 4.7 x10*3/uL (2.0-8.3); Platelet Count 711 X10*3/uL (160-400); Red Blood Count 3.44 X10*6/uL (4.20-5.50); Red Cell Distribution Width 14.1 % (11.0-16.0); White Blood Count 8.3 X10*3/uL (4.8-10.8)
[2023-05-20 22:42] LABS: Alanine Aminotransferase 11 U/L (0-31); Albumin Level 4.3 g/dL (3.5-5.0); Alkaline Phosphatase 68 U/L (39-117); Anion Gap 19 (12-20); Aspartate Amino Transferase 19 U/L (5-31); Bilirubin Direct < 0.2 mg/dL (0.0-0.5); Bilirubin Total 0.2 mg/dL (0.0-1.0); Blood Urea Nitrogen 13 mg/dL (9-16); Calcium 9.8 mg/dL (8.4-10.2); Carbon Dioxide 23 mmol/L (22-29); Chloride 104 mmol/L (96-108); Creatinine Clr Calc Pharmacy 94.9; Estimated Glomerular Filt Rate > 60; Glucose Random 100 mg/dL (60-115); Potassium 3.8 mmol/L (3.3-5.1); Sodium 142 mmol/L (135-145); Total Protein 7.9 g/dL (6.5-8.0)
[2023-05-20 22:59] VITALS: BP 121/88; PULSE 83; RESP 17; TEMP 36.7; O2SAT 97
--- NOTE | 2023-05-20 23:08 | ED.GENADULT ---
HPI - General Adult General Chief complaint: General Medical Stated complaint: ?L arm infection Time Seen by Provider: 05/20/23 22:59 History of Present Illness HPI narrative: 42 year old female with PTSD here with pain, swelling and rendness of right knee area. She fell on a porch step last May 07 and had an abrasion that has developed into open wound and surounding redness and pain patient was admitted on 05/16 went against medical advice on 05/17 went home on doxycycline and cephalexin comes back as as she noticed pain in the left arm at the site of the IV with cord-like feeling infection the left prepectoral area is getting better no fever no chills Related Data Home Medications Medication Instructions Recorded Confirmed meloxicam 15 mg tablet 15 mg PO DAILY PRN pain 05/06/23 05/16/23 acetaminophen 500 mg tablet 1,000 mg PO Q6H PRN Pain 05/16/23 05/16/23 ibuprofen 200 mg tablet 400 mg PO Q8H PRN Pain 05/16/23 05/16/23 tizanidine 2 mg tablet 2 mg PO Q8H PRN low back pain 05/16/23 05/16/23 Previous Rx's Medication Instructions Recorded cephalexin 500 mg capsule 500 mg PO QID #40 caps 05/17/23 doxycycline hyclate 100 mg tablet 100 mg PO BID #20 tabs 05/17/23 nicotine 21 mg/24 hr daily 21 mg transdermal DAILY #30 ea 05/17/23 transdermal patch aspirin 81 mg tablet,delayed 81 mg PO DAILY #30 tabs 05/21/23 release (Adult Low Dose Aspirin) mupirocin 2 % topical ointment 1 appl topical BID #22 grams 05/21/23 Allergies Allergy/AdvReac Type Severity Reaction Status Date / Time codeine [CODEINE] Allergy Mild N/V Verified 05/20/23 21:57 Penicillins Allergy Stomach Verified 05/20/23 21:57 Upset Review of Systems Review of Systems: Yes all other systems are reviewed and are negative PMFSH Past Medical History Medical History PTSD (post-traumatic stress disorder) Social History Social History Household Members: Family Household Members Other:: Son Housing: Apartment Do you presently have visiting nurse or other home services: No Alcohol intake: current Alcohol intake frequency: a few times a week Patient Tobacco Use Status: Current everyday Tobacco user Tobacco use type: Cigarette Cigarettes Per Day: 10 Smoked in Last 30 Days: Yes e-Cigarette/Vaping Use: Never Used Second Hand Smoke Exposure: Yes Use of substances other than those prescribed or required for medical reasons: Yes Substance Use Type: Marijuana Substance Use Frequency: Occasionally Advance Directives: No Advance Directives Information Provided: Yes Patient : No service: No Physical Exam ED Vital Signs: Vital Signs - 24 hr 05/20/23 21:58 05/20/23 22:59 05/20/23 23:34 Temperature 97.9 F 98.1 F 98.2 F Pulse Rate 85 83 81 Respiratory Rate 18 17 18 Blood Pressure 132/79 121/88 129/79 Pulse Oximetry 97 97 96 Oxygen Delivery Method Room Air Room Air Room Air 05/21/23 00:48 Temperature 98.1 F Pulse Rate 81 Respiratory Rate 18 Blood Pressure 130/89 Pulse Oximetry Oxygen Delivery Method Room Air BMI result Body Mass Index 21.9 Appearance: Alert. Oriented X3. No acute distress. Eyes: PERRLA, No Nystagmus ENT: Pharynx normal. Oral Mucosa moist Neck: Normal inspection. Neck supple. CVS: Normal heart rate and rhythm. Pulses normal. Respiratory: No respiratory distress. Equal air entry bilateral, no wheezing/rales/rhonchi Abdomen: Soft and nontender. Bowel sounds are present, no mass palpable, no CVA tenderness Skin: Skin warm and dry. Normal skin color. Normal skin turgor. Extremities: No lower extremity edema. No calf tenderness left knee with small open wound at the prepatellar area redness has decreased swelling has decreased less painful good range of movement Left upper extremity cord-like feeling of left cephalic vein Neuro: Oriented X 3. No motor deficit. No sensory deficit.No cerebellar signs , cranial nerves II-XII intact Medications Administered Discontinued Medications Generic Name Dose Route Start Last Admin Trade Name Freq PRN Reason Stop Dose Admin Aspirin 162 mg 05/21/23 00:55 05/21/23 01:39 Aspirin Enteric Coated 81 Mg Tablet.Dr PO 05/21/23 00:56 162 mg ONCE ONE Administration Bacitracin 1 appl 05/21/23 01:46 05/21/23 02:03 Bacitracin Oint 0.9 Gm Packet TOPICAL 05/21/23 01:47 1 appl ONCE ONE Administration Protocol Sodium Chloride 1,000 mls @ 999 mls/hr 05/20/23 23:16 05/20/23 23:53 Ns IV 05/21/23 00:16 999 mls/hr .Q1H1M ONE Administration Vancomycin HCl 1,500 mg/ 500 mls @ 333.333 mls/hr 05/20/23 23:45 05/20/23 23:53 Sodium Chloride IV 05/21/23 01:14 333.33 mls/hr ONCE ONE Administration Protocol Medical Decision Making Medical Decision Making [facility] Narrative: Patient with infected left patellar bursitis status post I&D on 05/17 on p.o. antibiotics at this time comes here for new findings of left arm pain at the site of the IV line. Clinically a bursitis getting better will do Doppler to rule out DVT patient had normal WBC count no fever had elevated lactic acid etiology not clear as patient drinks alcohol possibly the cause clinically patient is not septic will discharge patient home advised to use Bactroban ointment continue antibiotics and start taking aspirin for thrombophlebitis Differential Diagnosis Differential Diagnoses: The differential diagnosis associated with the presentation includes Cellulitis/abscess/DVT of left upper extremity Admission/Observation Consideration of admission/observation: Escalation of care including admission/observation considered Lab Data [facility] Lab Attestation statement: I reviewed the patient's lab results. 05/20/23 22:20 05/20/23 22:20 Labs: Lab Results 05/20/23 05/21/23 Range/Units 22:20 00:45 WBC 8.3 (4.8-10.8) X10*3/uL RBC 3.44 L (4.20-5.50) X10*6/uL Hgb 11.7 L (12.0-16.0) g/dl Hct 34.2 L (37.0-47.0) % MCV 99.4 H (80.0-98.0) fL MCH 34.0 H (27.0-33.0) pg MCHC 34.2 (31.0-35.0) g/dl RDW 14.1 (11.0-16.0) % Plt Count 711 H (160-400) X10*3/uL MPV 9.5 (9.4-12.3) fL Immature Gran % (Auto) 0.1 (0.0-0.4) % Neut % (Auto) 57.0 (45-73) % Lymph % (Auto) 37.6 (20-40) % Gooding % (Auto) 4.2 (2-11) % Eos % (Auto) 0.6 (0-4) % Baso % (Auto) 0.5 (0-2) % Lymph # (Auto) 3.1 (1.2-4.9) X10*3/uL Gooding # (Auto) 0.4 (0.1-1.2) X10*3/uL Eos # (Auto) 0.1 (0.0-0.4) X10*3/uL Baso # (Auto) 0.0 (0.0-0.2) X10*3/uL Abs Immat Gran (auto) 0.01 (0.00-0.03) X10*3/uL Absolute Neuts (auto) 4.7 (2.0-8.3) x10*3/uL Absolute Nucleated RBC 0.000 (0.0-0.012) X10*3/uL Nucleated RBC % (auto) 0.0 (0.0-0.2) /100WBC ESR 32 H (0-20) MM/HR Sodium 142 (135-145) mmol/L Potassium 3.8 (3.3-5.1) mmol/L Chloride 104 (96-108) mmol/L Carbon Dioxide 23 (22-29) mmol/L Anion Gap 19 (12-20) BUN 13 (9-16) mg/dL Creatinine 0.75 (0.5-1.4) mg/dL Estim Creat Clear Calc 94.9 Estimated GFR > 60 Random Glucose 100 (60-115) mg/dL Lactic Acid 3.0 H* (0.5-2.0) mmol/L Lactic Acid F/U @ 2Hr 3.6 H* (0.5-2.0) mmol/L Calcium 9.8 (8.4-10.2) mg/dL Total Bilirubin 0.2 (0.0-1.0) mg/dL Direct Bilirubin < 0.2 (0.0-0.5) mg/dL AST 19 (5-31) U/L ALT 11 (0-31) U/L Alkaline Phosphatase 68 (39-117) U/L C-Reactive Protein 1.10 H (< or = 0.50) mg/dL Total Protein 7.9 (6.5-8.0) g/dL Albumin 4.3 (3.5-5.0) g/dL Discharge Plan Discharge Clinical Impression: Septic infrapatellar bursitis of left knee, Superficial thrombophlebitis of left upper extremity Patient Disposition: Home, Self-Care Instructions: Cellulitis (ED), Knee Bursitis (ED), Superficial Thrombophlebitis (ED) Additional Instructions: Take baby aspirin daily until pain in the left arm gets better as you have inflammation of the vein after IV line Report to the ER if increased swelling and pain or fever of the left arm Continue to take the oral antibiotic as prescribed Apply Bactroban ointment twice daily to the open wound of the left knee, use peroxide to clean Report to the ER if increased swelling or pain or redness of the left knee Prescriptions: New mupirocin 2 % ointment 1 appl topical BID Qty: 22 0RF aspirin [Adult Low Dose Aspirin] 81 mg tablet,delayed release (DR/EC) 81 mg PO DAILY Qty: 30 0RF No Action meloxicam 15 mg tablet 15 mg PO DAILY PRN (Reason: pain) tizanidine 2 mg tablet 2 mg PO Q8H PRN (Reason: low back pain) acetaminophen 500 mg Tablet 1,000 mg PO Q6H PRN (Reason: Pain) Rx Instructions: alternates with ibuprofen ibuprofen 200 mg Tablet 400 mg PO Q8H PRN (Reason: Pain) Rx Instructions: alternates with tylenol cephalexin 500 mg capsule 500 mg PO QID Qty: 40 0RF doxycycline hyclate 100 mg tablet 100 mg PO BID Qty: 20 0RF Rx Instructions: Take with food and full glass of water. Do not lay down for 30 minutes after taking nicotine 21 mg/24 hr Patch 24 Hour 21 mg transdermal DAILY Qty: 30 3RF
[2023-05-20 23:34] VITALS: BP 129/79; PULSE 81; RESP 18; TEMP 36.8; O2SAT 96
[2023-05-20] MEDS: 0.9 % Sodium Chloride 1,000 ML 999 ML IV (23:53)
[2023-05-20] MEDS: vancomycin HCL 1,500 MG in 0.9 % Sodium Chloride 500 ML 333.33 MG IV (23:53)
[2023-05-21 00:25] LABS: Reflex Lactate? Lactic Acid Added
[2023-05-21 00:48] VITALS: BP 130/89; PULSE 81; RESP 18; TEMP 36.7
[2023-05-21 01:06] LABS: ~Lactic Acid-LAB USE ONLY 3.6 mmol/L (0.5-2.0)
[2023-05-21] MEDS: Aspirin Enteric Coated 81 MG TABLET.DR 162 MG PO (01:39)
[2023-05-21 01:51] LABS: Erythrocyte Sedimentation Rate 32 MM/HR (0-20)
--- NOTE | 2023-05-21 01:59 | PC.NURSE ---
Pt alert and oriented. VSS- temp 98.1, 83 pulse, 18 rr ,121/88 02- 97% on room air. Upon assessment, this RN noted a laceration to left knee. The area is reddened and warm to touch. PT denies fever or chills and reports 5/10 pain. Two attempts were made to insert IV. On second attempt 22g IV accessed in right wrist. IV fluids and antibiotics infused. Call vega within reach. Plan of care ongoing
[2023-05-21] MEDS: Bacitracin Oint 0.9 GM PACKET 1 APPL TOPICAL (02:03)
[2023-05-21 02:51] LABS: Reflex Lactate? 2 Y
== END 2023-05-21 02:55 | disposition home or self-care (01) ==
PROVIDERS: Emergency Provider Internal Medicine
DX: I80.3 Phlebitis and thrombophlebitis of lower extremities, unspecified (principal); I80.8 Phlebitis and thrombophlebitis of other sites; M70.52 Other bursitis of knee, left knee; M79.602 Pain in left arm; R60.0 Localized edema; Z79.899 Other long term (current) drug therapy; F17.210 Nicotine dependence, cigarettes, uncomplicated; Z71.6 Tobacco abuse counseling
CPT/HCPCS: 36415; 80048; 80076; 83605; 85025; 85652; 86140; 87040; 93971; 96374; 99284; J3371

== ENCOUNTER 2023-11-20 10:09 | Emergency (ER) | payer OTHER, SELFPAY ==
[2023-11-20 10:41] VITALS: BP 105/56; PULSE 81; RESP 18; TEMP 36.6; O2SAT 98; BMI 21.9
--- NOTE | 2023-11-20 11:08 | ED_ITS ---
HPI - Eye Problem General Chief complaint: Eye Problems Stated complaint: swollen, red eye for 5 days Time Seen by Provider: 11/20/23 11:03 Source: patient Mode of arrival: ambulatory Limitations: no limitations History of Present Illness HPI Narrative: 43 y/o female presents for left eye irritation and redness for 6 days. She reports that she was cleaning glitter on Thursday and rubbed her eye, thinks that maybe she got glitter in her eye. Has been experiencing clear drainage and crusting. States that she was prescribed ofloxacin drops for herself a while ago when her son was diagnosed with pink eye. She has been using the drops for 3d without improvement, states that it has actually worsened. Stinging at baseline but when she bends, forward lacrimation increase and has pain and pressure within the eye. Reports some photophobia but no changes in vision. Patient states that she has not yet seen an eye doctor but is scheduled for her first. Denies any fevers, cold/flu symptoms. She has been usuing an eye patch on her left eye. MD chief complaint: eye redness Onset (ago): day(s) Onset description: gradual Duration: constant Location: left eye Eye Symptoms: burning, redness, pain and itching Place: home Mechanism: other (possible FB) Severity: moderate Severity scale (1-10): 5 If Pain, Quality: other (stinging, pressure) Associated symptoms: none Related Data Home Medications ?Medication ?Instructions ?Recorded ?Confirmed meloxicam 15 mg tablet 15 mg PO DAILY PRN pain 05/06/23 05/16/23 acetaminophen 500 mg tablet 1,000 mg PO Q6H PRN Pain 05/16/23 05/16/23 ibuprofen 200 mg tablet 400 mg PO Q8H PRN Pain 05/16/23 05/16/23 tizanidine 2 mg tablet 2 mg PO Q8H PRN low back pain 05/16/23 05/16/23 Previous Rx's ?Medication ?Instructions ?Recorded cephalexin 500 mg capsule 500 mg PO QID #40 caps 05/17/23 doxycycline hyclate 100 mg tablet 100 mg PO BID #20 tabs 05/17/23 nicotine 21 mg/24 hr daily 21 mg transdermal DAILY #30 ea 05/17/23 transdermal patch aspirin 81 mg tablet,delayed 81 mg PO DAILY #30 tabs 05/21/23 release (Adult Low Dose Aspirin) mupirocin 2 % topical ointment 1 appl topical BID #22 grams 05/21/23 erythromycin 5 mg/gram (0.5 %) eye 0.5 inch ophthalmic (eye) BID #3.5 11/20/23 ointment grams Allergies Allergy/AdvReac Type Severity Reaction Status Date / Time codeine [CODEINE] Allergy Mild N/V Verified 11/20/23 10:47 Penicillins Allergy Stomach Verified 11/20/23 10:47 Upset Review of Systems 2 Review of Systems: Yes all other systems are reviewed and are negative [facility] Past Medical History Medical History PTSD (post-traumatic stress disorder) Social History Social History Household Members: Family Household Members Other:: Son Housing: Apartment Do you presently have visiting nurse or other home services: No Alcohol intake: current Alcohol intake frequency: a few times a week Patient Tobacco Use Status: Current everyday Tobacco user Tobacco use type: Cigarette Cigarettes Per Day: 10 e-Cigarette/Vaping Use: Never Used Second Hand Smoke Exposure: Yes Substance Use Type: Marijuana Advance Directives: No Advance Directives Information Provided: Yes service: No Physical Exam 2 Vital Signs: Vital Signs: Last Vital Signs Temp 97.9 F 11/20/23 11:57 Pulse 81 11/20/23 11:57 Resp 18 11/20/23 11:57 BP 105/56 L 11/20/23 11:57 Pulse Ox 98 11/20/23 11:57 O2 Del Method Room Air 11/20/23 11:57 BMI result Body Mass Index 21.9 Const: General: cooperative and healthy appearing O rientation/consciousness: patient oriented x3 Limitations: no limitations HEENT: Head: Yes normal to inspection Ears: hearing grossly normal bilaterally General nose exam: Normal external nose present Eyes: General: appearance normal, both eyes and all related structures (L eye erythematous with ciliary injection and eyelid swelling) Visual Hatch: n ormal visual hatch by confrontation Alignment and Position: alignment normal Periorbital: periorbital findings normal Eyelids: Yes eyelid abnormality (L edematous, erythematous) Conjunctivae: conjunctival abnormal (erythematous) left Corneas: corneas abnormal (small, diffuse corneal abrasions visualized with wood's lamp) on the left and diffuse and fluorescein used Pupils: Equal, round and reactive pupils present and Pupils normal by confrontation EOM: EOMs intact bilaterally Direct Ophthalmoscopy: normal light reflex Eyes/upper lids images: 1. swollen, pt states this is site of pain, stinging Resp: Effort & Inspection: normal respiratory effort and able to speak in complete sentences Auscultation: clear to auscultation bilaterally Cardio: Rhythm: regular rhythm Heart sounds: S1 normal heart sound present and S2 normal heart sound present Neuro: General: patient oriented x3 Cranial nerves: Yes Equal, round and reactive pupils present Medications Administered Discontinued Medications Generic Name Dose Route Start Last Admin Trade Name Freq PRN Reason Stop Dose Admin Tetracaine HCl 1 drop 11/20/23 11:08 11/20/23 11:22 Tetracaine Hcl/Pf 0.5% Oph Anca 4 Ml Drops EYE-LEFT 11/20/23 11:09 1 drop ONCE ONE Administration Medical Decision Making Medical Decision Making [facility] Narrative: 43 y/o female presents for left eye irritation and redness for 6 days with possible foreign body. She states that she possibly has glitter in her eye. Symptoms have worsened since Thursday with increasing stinging, pain, and lacrimation. Reports some photophobia but denies visual changes. Has been using ofloxacin drops the past 3 days without improvement. Visual acuity is 20/20 R eye and 20/30 L eye. Intraocular pressure of 19 in L eye. Wood's lamp examination reveals diffuse small corneal abrasions. Low clinical suspicion for acute-angle closure glaucoma considering normal IOP and lack of visual changes, acute onset. Considering diffuse ciliary injection and erythematous conjunctiva for 6 days, presentation is most likely due to uveitis or conjunctivitis. She does have several small diffuse corneal abrasions, will treat with erythromycin ointment to aid in lubrication and healing. Comfortable to discharge home with strict return precuations regarding acute worsening, loss of vision, pain. Follow up with ophthalmology next week. Differential Diagnosis Differential Diagnoses: The differential diagnosis associated with the presentation includes otic foreign body, conjunctivitis, chemosis, iritis, uveitis, acute angle closure glaucoma less likely External Record Review External record reviewed: Prior outpatient labs Prescription Management I considered prescription management with: Pain Medication and Antibiotic Critical Care Time Critical Care Time Critical Care Time: No Discharge Plan Discharge Clinical Impression: Corneal abrasion, Conjunctivitis Patient Disposition: Home, Self-Care Instructions: Corneal Abrasion (DC), Conjunctivitis (ED) Additional Instructions: Use the prescribed antibiotic ointment as directed for 1 week Follow up with Ophthalmology If you develop new or worsening symptoms call 911 or come back to the ER for further evaluation. Prescriptions: New erythromycin 5 mg/gram (0.5 %) ointment 0.5 inch ophthalmic (eye) BID Qty: 3.5 0RF No Action meloxicam 15 mg tablet 15 mg PO DAILY PRN (Reason: pain) tizanidine 2 mg tablet 2 mg PO Q8H PRN (Reason: low back pain) acetaminophen 500 mg Tablet 1,000 mg PO Q6H PRN (Reason: Pain) Rx Instructions: alternates with ibuprofen ibuprofen 200 mg Tablet 400 mg PO Q8H PRN (Reason: Pain) Rx Instructions: alternates with tylenol cephalexin 500 mg capsule 500 mg PO QID Qty: 40 0RF doxycycline hyclate 100 mg tablet 100 mg PO BID Qty: 20 0RF Rx Instructions: Take with food and full glass of water. Do not lay down for 30 minutes after taking nicotine 21 mg/24 hr Patch 24 Hour 21 mg transdermal DAILY Qty: 30 3RF mupirocin 2 % ointment 1 appl topical BID Qty: 22 0RF aspirin [Adult Low Dose Aspirin] 81 mg tablet,delayed release (DR/EC) 81 mg PO DAILY Qty: 30 0RF Referrals: Georgi Yu [Physician] - Interventions: ED Discharge Assessment Last Done: 11/20/23 11:57 Discharge Date/Time: 11/20/23 11:58 Print Language: Mongolian
[2023-11-20] MEDS: Tetracaine HCl/PF 0.5% Oph Sol 4 ML DROPS 1 DROP EYE-LEFT (11:22)
[2023-11-20 11:57] VITALS: BP 105/56; PULSE 81; RESP 18; TEMP 36.6; O2SAT 98
== END 2023-11-20 11:58 | disposition home or self-care (01) ==
PROVIDERS: Emergency Provider Emergency Medicine Emergency Medical Services
DX: S05.02XA Injury of conjunctiva and corneal abrasion without foreign body, left eye, initial encounter (principal); H10.9 Unspecified conjunctivitis; X58.XXXA Exposure to other specified factors, initial encounter; Y93.9 Activity, unspecified; Y92.9 Unspecified place or not applicable; Y99.9 Unspecified external cause status
CPT/HCPCS: 99282; 99283

== ENCOUNTER 2024-04-19 15:00 | Emergency (ER) | payer OTHER, SELFPAY ==
--- NOTE | ~2024-04-19 | XR_ITS ---
EXAMINATION: XR CHEST CLINICAL INFORMATION: Right rib pain. Injury 3 weeks ago. COMPARISON: None available. TECHNIQUE: 2 views of the chest were obtained. FINDINGS: Cardiac and mediastinal silhouette is within normal limits. Lungs are symmetrically expanded. No focal consolidation, effusion, or edema. No pneumothorax is seen. There is dysmorphic appearance of the anterior aspect of the right 10th and 11th ribs. This could represent physiological variant appearance versus periosteal reaction/callus related to a subacute fracture. Correlate for focal tenderness. No acute displaced rib fracture is otherwise seen on the provided views. The thoracic vertebral body heights are maintained. XR/XR chest 2V IMPRESSION: Dysmorphic appearance of the right 10th and 11th ribs,, could represent for physiological variant appearance versus sequela of age indeterminate fracture, perhaps related to a subacute fracture. Correlate for focal tenderness. No additional displaced rib fractures are evident by x-ray. Additional/follow-up imaging as clinically indicated. Electronically signed by: Saeid Patel MD 04/19/2024 05:55 PM EDT
[2024-04-19 15:18] VITALS: BP 121/84; PULSE 104; RESP 16; TEMP 36.8; O2SAT 98; BMI 18.9
[2024-04-19 16:45] LABS: Ethanol 337 mg/dL
--- NOTE | 2024-04-19 19:19 | PC.NURSE ---
Pt no answer when called for reassessment.
== END 2024-04-19 19:20 | disposition left against medical advice (07) ==
PROVIDERS: Emergency Provider Emergency Medicine
DX: S29.9XXA Unspecified injury of thorax, initial encounter (principal); Y04.2XXA Assault by strike against or bumped into by another person, initial encounter; R07.81 Pleurodynia; Y93.9 Activity, unspecified; Y92.9 Unspecified place or not applicable; Y99.9 Unspecified external cause status; Z53.21 Procedure and treatment not carried out due to patient leaving prior to being seen by health care provider
CPT/HCPCS: 36415; 71046; 80307; 99281

== ENCOUNTER 2024-11-19 01:19 | Emergency (ER) | payer MEDICAID, SELFPAY ==
--- NOTE | ~2024-11-19 | XR_ITS ---
CLINICAL HISTORY: pain, ? broken pinky Right fingers, 3 views COMPARISON: None FINDINGS: Fracture of the distal/lateral aspect of the 5th proximal phalanx seen on the frontal and oblique views. Minimally displaced fracture of the proximal/ventral aspect of the 5th middle phalanx on the lateral view. No dislocation. Fifth digit soft tissue swelling. IMPRESSION: Fractures of the 5th proximal and middle phalanges with associated soft tissue swelling. This document has been electronically signed by: Enzo Colin MD on 11/19/2024 03:01:02
[2024-11-19 01:24] VITALS: BP 118/84; BP 124/76; PULSE 91; PULSE 96; RESP 16; TEMP 36.6; O2SAT 96; O2SAT 97; BMI 22.2
[2024-11-19 01:34] VITALS: BP 118/84; PULSE 91; RESP 16; TEMP 36.6; O2SAT 97
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
[2024-11-19] MEDS: Lidocaine HCl 1 % MPF 2 ML VIAL INFILTRATI (02:44)
[2024-11-19] MEDS: Amoxicillin/Potassium Clav 875 MG TABLET PO (02:44)
[2024-11-19] MEDS: Ibuprofen 600 MG TABLET PO (03:00)
[2024-11-19] MEDS: Bacitracin Oint 0.9 GM PACKET 1 APPL TOPICAL (03:00)
[2024-11-19 03:39] VITALS: BP 118/84; PULSE 91; RESP 16; TEMP 36.6; O2SAT 97
== END 2024-11-19 03:40 | disposition home or self-care (01) ==
PROVIDERS: Emergency Provider Internal Medicine; PCP Internal Medicine
DX: S61.216A Laceration without foreign body of right little finger without damage to nail, initial encounter (principal); S62.606A Fracture of unspecified phalanx of right little finger, initial encounter for closed fracture; M79.641 Pain in right hand; Y04.2XXA Assault by strike against or bumped into by another person, initial encounter; Y93.9 Activity, unspecified; Y92.9 Unspecified place or not applicable; Y99.8 Other external cause status; Z79.899 Other long term (current) drug therapy
CPT/HCPCS: 12001; 29130; 73140; 99284; J2003

== ENCOUNTER → 2024-11-19 01:45 | Outpatient (BNV) | payer SELFPAY | PROVIDERS: Emergency Provider Internal Medicine; PCP Internal Medicine; Visit Provider Radiology Diagnostic Radiology | DX: S62.616A Displaced fracture of proximal phalanx of right little finger, initial encounter for closed fracture (principal); S62.626A Displaced fracture of middle phalanx of right little finger, initial encounter for closed fracture; M79.89 Other specified soft tissue disorders | CPT/HCPCS: 73140 ==

== ENCOUNTER 2025-01-25 17:02 | Emergency (ER) | payer MEDICAID, OTHER, SELFPAY ==
[2025-01-25] VITALS (8 sets, daily range): BP systolic 67–106; BP diastolic 42–69; PULSE 73–101; RESP 11–18; TEMP 36.3–36.5; O2SAT 95–99; BMI 20.6
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
[2025-01-25 17:57] LABS: MANUAL DIFF FLAG NO
[2025-01-25 17:58] LABS: Basophils Percent Auto 0.3 % (0-2); Eosinophils Percent Auto 0.2 % (0-4); Hematocrit 35.5 % (37.0-47.0); Hemoglobin 12.5 g/dl (12.0-16.0); Imm Gran Abs Auto 0.03 X10*3/uL (0.00-0.03); Imm Gran Pct Auto 0.3 % (0.0-0.4); Lymphocytes Absolute Auto 1.9 X10*3/uL (1.2-4.9); Lymphocytes Percent Auto 15.9 % (20-40); Mean Corpuscular HGB Conc 35.2 g/dl (31.0-35.0); Mean Corpuscular Hemoglobin 33.5 pg (27.0-33.0); Mean Corpuscular Volume 95.2 fL (80.0-98.0); Monocytes Absolute Auto 0.5 X10*3/uL (0.1-1.2); Monocytes Percent Auto 4.4 % (2-11); Neutrophils Absolute Auto 9.4 x10*3/uL (2.0-8.3); Neutrophils Percent Auto 78.9 % (45-73); Platelet Count 417 X10*3/uL (160-400); Red Blood Count 3.73 X10*6/uL (4.20-5.50); Red Cell Distribution Width 13.7 % (11.0-16.0); White Blood Count 11.9 X10*3/uL (4.8-10.8)
--- NOTE | 2025-01-25 18:05 | ED_ITS ---
HPI - General Adult General Chief complaint: Psychiatric Symptoms Stated complaint: Crisis, possible etoh Time Seen by Provider: 01/25/25 17:10 Source: patient and RN notes reviewed Mode of arrival: ambulatory Limitations: no limitations History of Present Illness ED Provider: Ne Gongora PA-C HPI narrative: This is a 44-year-old female, with a past medical history of anemia, who presents emergency department via EMS after being involved in a verbal altercation with her aunt. Patient reports that she had felt dizzy and states that she felt as though she did not want to be home alone and she called her aunt. She states that she has been under a lot of stress in regards to DCF in custody. She states that she began to get in a fight with her aunt, verbally, and the police were called. EMS was then called for transfer for crisis evaluation. She denies any suicidal or homicidal ideation. She does report that she drank 4 shots of hard liquor today. She states that over the last several days she has not been eating or taking very good care of herself. She denies any drug use. She denies daily alcohol use. States that she typically drinks ?maybe 2 times a week, states that she drinks 4 shots when she does drink. Denies history of alcohol withdrawal. No other complaints or concerns at this time. MD complaint: Crisis evaluation/dizziness Relieving factors: none Exacerbating factors: none Associated symptoms: denies other symptoms Treatments prior to arrival: none Related Data Home Medications ?Medication ?Instructions ?Recorded ?Confirmed meloxicam 15 mg tablet 15 mg PO DAILY PRN pain 04/1105/16/23 acetaminophen 500 mg tablet 1,000 mg PO Q6H PRN Pain 1 05/16/23 ibuprofen 200 mg tablet 400 mg PO Q8H PRN Pain 05/1605/16/23 tizanidine 2 mg tablet 2 mg PO Q8H PRN low back melissa n 05/16/23 05/16/23 Previous Rx's ?Medication ?Instructions ?Recorded cephalexin 500 mg capsule 500 mg PO QID #40 caps 05/17 doxycycline hyclate 100 mg tablet 100 mg PO BID #20 ta bs 05/17/23 nicotine 21 mg/24 hr daily 21 mg transdermal DAILY #30 ea 05/17/23 transdermal patch aspirin 81 mg tablet,delayed 81 mg PO DAILY #30 tabs 1 release (Adult Low Dose Aspirin) mupirocin 2 % topical ointment 1 appl topical BID #22 grams 05/21/23 erythromycin 5 mg/gram (0.5 %) eye 0.5 inch ophthalmic (eye) BID #3.5 11/20/23 ointment grams amoxicillin 875 mg-potassium 1 tab PO BID #20 tabs 08/03 clavulanate 125 mg tablet ibuprofen 600 mg tablet 600 mg PO Q6H PRN fever or p ain 11/19/24 #30 tabs Allergies Allergy/AdvReac Type Severity Reaction Status Date / Time codeine (CODEINE) Allergy Mild N/V Verified 01/25/25 17:34 Penicillins Allergy Stomach Verified 01/25/25 17:34 Upset Review of Systems 2 Review of Systems: Yes all other systems are reviewed and are negative Constitutional: Constitutional: Reports as per [facility] Past Medical History Attestation statement: The following information was validated with the patient. Medical History PTSD (post-traumatic stress disorder) Social History Social History Household Members: Family Household Members Other:: Son Housing: Apartment Do you presently have visiting nurse or other home services: No Alcohol intake: current Alcohol intake frequency: a few times a week Alcohol type: hard liquor Patient Tobacco Use Status: Current everyday Tobacco user Tobacco use type: Cigarette Cigarettes Per Day: 10 Smoked in Last 30 Days: Yes e-Cigarette/Vaping Use: Never Used Second Hand Smoke Exposure: Yes Use of substances other than those prescribed or required for medical reasons: Yes Substance Use Type: Marijuana Substance Use Frequency: Occasionally Advance Directives: No Advance Directives Information Provided: No Do you have a plan to hurt others: No Plan service: No Physical Exam ED Vital Signs: Vital Signs - 24 hr 01/25/25 17:29 01/25/25 17:36 01/25/25 18:07 Temperature 97.3 F Pulse Rate 73 80 77 Respiratory Rate 18 18 16 Blood Pressure 67/43 L 69/44 L 68/42 L Pulse Oximetry 97 98 98 Oxygen Delivery Method Room Air Room Air Room Air 01/25/25 18:43 01/25/25 19:19 01/25/25 20:05 Temperature 97.6 F Pulse Rate 82 82 78 Respiratory Rate 11 L 18 18 Blood Pressure 89/54 L 103/67 101/68 Pulse Oximetry 99 99 97 Oxygen Delivery Method Room Air Room Air Room Air 01/25/25 20:54 Temperature 97.7 F Pulse Rate 77 Respiratory Rate 13 Blood Pressure 106/69 Pulse Oximetry 95 Oxygen Delivery Method Room Air BMI result Body Mass Index 20.6 Const General: cooperative, comfortable and no acute distress Orientation/consciousness: patient oriented x3 Limitations: no limitations HENMT Head: Yes normal to inspection, Yes normocephalic and Yes atraumatic Ears: hearing grossly normal bilaterally General nose exam: Normal external nose present Face and sinus: Yes normal facial exam Mouth: Normal oral and palatal mucosa present, oropharynx normal and moist mucous membranes Throat: Yes posterior oropharynx normal Eyes General: appearance normal, both eyes and all related structures Eyelids: Yes eyelids normal Conjunctivae: conjunctivae normal Sclerae: sclerae normal Pupils: Equal, round and reactive pupils present EOM: EOMs intact bilaterally Neck Neck: Yes normal visual inspection, Yes full ROM and Yes no lymphadenopathy Lymphatic: no lymphadenopathy noted Chest Chest palpation & inspection: normal inspection of the chest Resp Effort & Inspection: normal respiratory effort and able to speak in complete sentences Auscultation: clear to auscultation bilaterally, no crackles, no rales, no rhonchi and no wheezes Cardio Rate: regular rate Rhythm: regular rhythm Heart sounds: S1 normal heart sound present and S2 normal heart sound present GI Other: Abdomen is soft, nontender, nondistended Inspection: Yes normal to inspection Skin General skin exam: no rashes or lesions noted Trauma: no lacerations or abrasions Wounds: no wounds Neuro General: patient oriented x3 and moves all extremities Cranial nerves: Yes Equal, round and reactive pupils present Extrem General: Yes normal to inspection Right upper extremity: normal to inspection Left upper extremity: normal to inspection Right lower extremity: normal to inspection Left lower extremity: normal to inspection Medications Administered Discontinued Medications Generic Name Dose Route Start Last Admin Trade Name Freq PRN Reason Stop Dose Admin Folic Acid 1 mg 01/25/25 19:07 01/25/25 19:17 Folic Acid 1 Mg Tablet PO 01/25/25 19:08 1 mg ONCE ONE Administration Sodium Chloride 1,000 mls @ 999 mls/hr 01/25/25 18:00 01/25/25 18:55 Ns IV 01/25/25 19:00 Infused .Q1H1M ONE Infusion Sodium Chloride 1,000 mls @ 999 mls/hr 01/25/25 18:44 01/25/25 19:19 Ns IVCONT 01/25/25 19:44 Infused .Q1H1M ONE Infusion Dextrose/Lactated Ringer's 1,000 mls @ 999 mls/hr 01/25/25 19:06 01/25/25 20:34 D5lr IVCONT 01/25/25 20:06 Infused .Q1H1M ONE Infusion Thiamine HCl 100 mg 01/25/25 19:07 01/25/25 19:17 Thiamine Hcl 100 Mg Tablet PO 01/25/25 19:08 100 mg ONCE ONE Administration Medical Decision Making Medical Decision Making [facility] Narrative: This is a 44 year old female, with a history of anemia, and PTSD, who presents emergency department after being involved in a verbal altercation with her aunt. Patient was initially brought into the behavioral health pod however blood pressure low at 60 7/43. She has no chest pain or shortness of breath. She does report dizziness, states that she has had this for ?a while . Patient did drink prior to her arrival today, denies daily alcohol use. Discussed case with my attending physician, Dr. Will. Will obtain labs, EKG, U tox, and will also hydrate with IV fluids. Patient is speaking in full sentences under no acute distress. Hypotension thought to be due to volume depletion, will continue to closely monitor. Differential diagnoses include volume depletion, anemia, orthostatic hypotension, alcohol abuse. >> Received critical lactic of 5.4. Other labs reveal leukocytosis at 11.9, elevated platelets at 417, she does have an anion gap at 21, slight elevation creatinine at 1.2. At this time we are not thinking that this is an infectious cause as she is not having any other symptoms. Her ethyl alcohol level is 246, she has no abdominal pain, no urinary symptoms, no cough. We are ordering a another L, with dextrose as this can help close the anion gap. It is thought that she has an alcoholic ketoacidosis, and hypotension and lactic acidosis has not secondary to an infectious cause. Her blood pressure has improved with the IV fluids. We will continue to closely monitor pending overall workup. I gave sent out to my attending physician, Dr Will, pending overall workup. 01/25/252044 Miki Will MD Note: I assumed care of this patient from my colleague, physician curriculum assistant Ne Schroeder. Patient told me that she has no money and has not been eating for several days. She states she has been drinking at least 4 shots of alcohol daily. The patient was brought to emergency department by police after getting in an argument with her aunt. The patient is not suicidal or homicidal. Patient was found to have an elevated lactic acid and a low venous pH of 7.28. Patient's presentation is consistent with alcoholic ketoacidosis and starvation ketoacidosis. Patient was treated with normal saline IV x1 L and D5 NS x1 L. Patient was also given apple juice to drink and was able to eat a sandwich. At this time she does not want to talk to crisis about her alcohol use disorder and wants to be discharged.She is also refusing any further blood tests including repeating her lactic acid. I emphasize the importance of eating meals and to stop drinking alcohol. She was given the number to [facility] and numbers to detox facilities.. Patient was given printed and verbal instructions and discharged home. Differential Diagnosis Differential Diagnoses: The differential diagnosis associated with the presentation includes See above Admission/Observation Consideration of admission/observation: Escalation of care including admission/observation considered Lab Data [facility] Lab Attestation statement: I reviewed the patient's lab results. See MDM and course 01/25/25 17:40 01/25/25 17:40 Labs: Lab Results 01/25/25 01/25/25 01/25/25 Range/Units 17:40 18:34 19:24 WBC 11.9 H (4.8-10.8) X10*3/uL RBC 3.73 L (4.20-5.50) X10*6/uL Hgb 12.5 (12.0-16.0) g/dl Hct 35.5 L (37.0-47.0) % MCV 95.2 (80.0-98.0) fL MCH 33.5 H (27.0-33.0) pg MCHC 35.2 H (31.0-35.0) g/dl RDW 13.7 (11.0-16.0) % Plt Count 417 H D (160-400) X10*3/uL MPV 10.0 (9.4-12.3) fL Immature Gran % (Auto) 0.3 (0.0-0.4) % Neut % (Auto) 78.9 H (45-73) % Lymph % (Auto) 15.9 L (20-40) % [place] % (Auto) 4.4 (2-11) % Eos % (Auto) 0.2 (0-4) % Baso % (Auto) 0.3 (0-2) % Lymph # (Auto) 1.9 (1.2-4.9) X10*3/uL [place] # (Auto) 0.5 (0.1-1.2) X10*3/uL Eos # (Auto) 0.0 (0.0-0.4) X10*3/uL Baso # (Auto) 0.0 (0.0-0.2) X10*3/uL Abs Immat Gran (auto) 0.03 (0.00-0.03) X10*3/uL Absolute Neuts (auto) 9.4 H (2.0-8.3) x10*3/uL Absolute Nucleated RBC 0.000 (0.0-0.012) X10*3/uL Nucleated RBC % (auto) 0.0 (0.0-0.2) /100WBC VBG pH 7.28 L (7.32-7.43) VBG pCO2 30 mmHg VBG pO2 43 mmHg VBG HCO3 14 L (22-26) mmol/L VBG O2 Saturation 55.0 % VBG Base Excess -10.7 mmol/L Sodium 139 (135-145) mmol/L Potassium 4.6 (3.3-5.1) mmol/L Chloride 106 (96-108) mmol/L Carbon Dioxide 17 L (22-29) mmol/L Anion Gap 21 H (12-20) BUN 23 H (9-16) mg/dL Creatinine 1.21 (0.5-1.4) mg/dL Estim Creat Clear Calc 50.9 Estimated GFR 48 Random Glucose 117 H (60-115) mg/dL Lactic Acid 5.4 H* (0.5-2.0) mmol/L Calcium 9.5 (8.4-10.2) mg/dL Total Bilirubin 0.6 (0.0-1.0) mg/dL AST 31 (5-31) U/L ALT 22 (0-31) U/L Alkaline Phosphatase 64 (39-117) U/L Total Creatine Kinase 143 H (26-140) U/L Troponin I High Sens 8.0 (<3.5-17.0) ng/L Total Protein 7.5 (6.5-8.0) g/dL Albumin 4.7 (3.5-5.0) g/dL Beta HCG, Quant < 2 mIU/mL Urine Color Urine Appearance Urine pH (5.0-9.0) Ur Specific [place] (1.005-1.025) Urine Protein (Neg-Trace) mg/dL Urine Glucose (UA) (Negative) mg/dL Urine Ketones (Negative) mg/dL Urine Blood (Negative) Urine Nitrite (Negative) Ur Leukocyte Esterase (Negative) Urine RBC (0-2) /HPF Urine WBC (0-5) /HPF Ur Squamous Epith Cells (0-2) /HPF Urine Bacteria (None Seen) Hyaline Casts (0-2) /LPF Salicylates < 5.0 L (15-30) mg/dL Urine Opiates Screen (Not Detect) Ur Buprenorphine Scrn (Not Detect) ng/mL Ur Oxycodone Screen (Not Detect) ng/mL Urine Methadone Screen (Not Detect) ng/mL Urine Fentanyl Screen (Not Detect) Acetaminophen < 3 (<30) mcg/mL Ur Barbiturates Screen (Not Detect) Ur Phencyclidine Scrn (Not Detect) Ur Amphetamines Screen (Not Detect) U Benzodiazepines Scrn (Not Detect) Urine Cocaine Screen (Not Detect) U Marijuana (THC) Screen (Not Detect) Ethyl Alcohol 246 mg/dL Blood Type B Positive Antibody Screen NEGATIVE 01/25/25 Range/Units 19:43 WBC (4.8-10.8) X10*3/uL RBC (4.20-5.50) X10*6/uL Hgb (12.0-16.0) g/dl Hct (37.0-47.0) % MCV (80.0-98.0) fL MCH (27.0-33.0) pg MCHC (31.0-35.0) g/dl RDW (11.0-16.0) % Plt Count (160-400) X10*3/uL MPV (9.4-12.3) fL Immature Gran % (Auto) (0.0-0.4) % Neut % (Auto) (45-73) % Lymph % (Auto) (20-40) % [place] % (Auto) (2-11) % Eos % (Auto) (0-4) % Baso % (Auto) (0-2) % Lymph # (Auto) (1.2-4.9) X10*3/uL [place] # (Auto) (0.1-1.2) X10*3/uL Eos # (Auto) (0.0-0.4) X10*3/uL Baso # (Auto) (0.0-0.2) X10*3/uL Abs Immat Gran (auto) (0.00-0.03) X10*3/uL Absolute Neuts (auto) (2.0-8.3) x10*3/uL Absolute Nucleated RBC (0.0-0.012) X10*3/uL Nucleated RBC % (auto) (0.0-0.2) /100WBC VBG pH (7.32-7.43) VBG pCO2 mmHg VBG pO2 mmHg VBG HCO3 (22-26) mmol/L VBG O2 Saturation % VBG Base Excess mmol/L Sodium (135-145) mmol/L Potassium (3.3-5.1) mmol/L Chloride (96-108) mmol/L Carbon Dioxide (22-29) mmol/L Anion Gap (12-20) BUN (9-16) mg/dL Creatinine (0.5-1.4) mg/dL Estim Creat Clear Calc Estimated GFR Random Glucose (60-115) mg/dL Lactic Acid (0.5-2.0) mmol/L Calcium (8.4-10.2) mg/dL Total Bilirubin (0.0-1.0) mg/dL AST (5-31) U/L ALT (0-31) U/L Alkaline Phosphatase (39-117) U/L Total Creatine Kinase (26-140) U/L Troponin I High Sens (<3.5-17.0) ng/L Total Protein (6.5-8.0) g/dL Albumin (3.5-5.0) g/dL Beta HCG, Quant mIU/mL Urine Color Yellow Urine Appearance Clear Urine pH 6.5 (5.0-9.0) Ur Specific [place] <= 1.005 (1.005-1.025) Urine Protein 100 (2+) H (Neg-Trace) mg/dL Urine Glucose (UA) Negative (Negative) mg/dL Urine Ketones Trace (Negative) mg/dL Urine Blood Small (1+) H (Negative) Urine Nitrite Negative (Negative) Ur Leukocyte Esterase Negative (Negative) Urine RBC 0-2 (0-2) /HPF Urine WBC 0-5 (0-5) /HPF Ur Squamous Epith Cells 3-5 (0-2) /HPF Urine Bacteria None Seen (None Seen) Hyaline Casts 0-2 (0-2) /LPF Salicylates (15-30) mg/dL Urine Opiates Screen Not Detected (Not Detect) Ur Buprenorphine Scrn Not Detected (Not Detect) ng/mL Ur Oxycodone Screen Not Detected (Not Detect) ng/mL Urine Methadone Screen Not Detected (Not Detect) ng/mL Urine Fentanyl Screen Not Detected (Not Detect) Acetaminophen (<30) mcg/mL Ur Barbiturates Screen Not Detected (Not Detect) Ur Phencyclidine Scrn Not Detected (Not Detect) Ur Amphetamines Screen Not Detected (Not Detect) U Benzodiazepines Scrn Not Detected (Not Detect) Urine Cocaine Screen Not Detected (Not Detect) U Marijuana (THC) Screen POSITIVE H (Not Detect) Ethyl Alcohol mg/dL Blood Type Antibody Screen Independent Interpretation I performed an independent interpretation of an: EKG Interpretation: Normal sinus rhythm at a ventricular rate of 75 beats per minute, VT interval 158, QT QTC 400/446, no STEMI Discharge Plan Discharge Clinical Impression: Acute alcohol intoxication, Alcoholic ketoacidosis, Starvation ketoacidosis Patient Disposition: Home, Self-Care Additional Instructions: When we check your blood, the legal limit of alcohol intoxication is 80. Your alcohol level was 246 (4 times the limit of alcohol intoxication) When people drank alcohol on a regular basis, alcohol acts as calories and you can get very malnourished by not eating and only drinking alcohol. This is called alcoholic ketoacidosis or starvation ketoacidosis. Your blood work was consistent with the these conditions, and you had a very high lactic acid. You were treated with a L of normal saline and a L with dextrose normal saline. Further treatment requires that you eat food and stopped drinking alcohol. At this time, you told me that you do not want to harm yourself or anyone else. If you start thinking this way I want you to return to the emergency department so that we can help you. Please follow the alcohol use disorder instructions below. Alcohol use disorder You were seen in the Emergency Department today for treatment of alcohol use disorder.? If you would like to cut down or stop your alcohol use please consider calling our outpatient Addiction Treatment office:? [facility] (M-F [id number]) [address] [place] [address] [address] ? You have also been given a list of treatment providers in the area that can assist as well.? If you experience seizures, vomiting blood, black stools, falls, severe headache, chest pain, fevers, trouble breathing, hallucinations or any other concerns you need to call 911 or seek immediate care. Please stay hydrated. Prescriptions: No Action meloxicam 15 mg tablet 15 mg PO DAILY PRN (Reason: pain) tizanidine 2 mg tablet 2 mg PO Q8H PRN (Reason: low back pain) acetaminophen 500 mg Tablet 1,000 mg PO Q6H PRN (Reason: Pain) Rx Instructions: alternates with ibuprofen ibuprofen 200 mg Tablet 400 mg PO Q8H PRN (Reason: Pain) Rx Instructions: alternates with tylenol cephalexin 500 mg capsule 500 mg PO QID Qty: 40 0RF doxycycline hyclate 100 mg tablet 100 mg PO BID Qty: 20 0RF Rx Instructions: Take with food and full glass of water. Do not lay down for 30 minutes after taking nicotine 21 mg/24 hr Patch 24 Hour 21 mg transdermal DAILY Qty: 30 3RF erythromycin 5 mg/gram (0.5 %) ointment 0.5 inch ophthalmic (eye) BID Qty: 3.5 0RF mupirocin 2 % ointment 1 appl topical BID Qty: 22 0RF aspirin [Adult Low Dose Aspirin] 81 mg tablet,delayed release (DR/EC) 81 mg PO DAILY Qty: 30 0RF ibuprofen 600 mg tablet 600 mg PO Q6H PRN (Reason: fever or pain) Qty: 30 0RF amoxicillin-pot clavulanate 875-125 mg tablet 1 tab PO BID Qty: 20 0RF Interventions: [place]-Suicide Risk Severity Scale Last Done: 01/25/25 17:36 Print Language: Cymraes
[2025-01-25] MEDS: 0.9 % Sodium Chloride 1,000 ML 999 ML IV (18:08)
--- NOTE | 2025-01-25 18:08 | ECG_ITS ---
Test Reason : LOW BP Blood Pressure : */* mmHG Vent. Rate : 75 BPM Atrial Rate : 75 BPM P-R Int : 158 ms QRS Dur : 82 ms QT Int : 400 ms P-R-T Axes : 72 74 69 degrees QTcB Int : 446 ms Normal sinus rhythm Normal ECG When compared with ECG of 19-May-2023 20:43, No significant change was found Referred By: Ne Gongora Electronically Signed By: Jem Carrasco
[2025-01-25 18:17] LABS: Acetaminophen LAB < 3 mcg/mL (<30); Alanine Aminotransferase 22 U/L (0-31); Albumin Level 4.7 g/dL (3.5-5.0); Alkaline Phosphatase 64 U/L (39-117); Anion Gap 21 (12-20); Aspartate Amino Transferase 31 U/L (5-31); Bilirubin Total 0.6 mg/dL (0.0-1.0); Blood Urea Nitrogen 23 mg/dL (9-16); Calcium 9.5 mg/dL (8.4-10.2); Carbon Dioxide 17 mmol/L (22-29); Chloride 106 mmol/L (96-108); Creatinine Clr Calc Pharmacy 50.9; Estimated Glomerular Filt Rate 48; Ethanol 246 mg/dL; Glucose Random 117 mg/dL (60-115); Potassium 4.6 mmol/L (3.3-5.1); Salicylate < 5.0 mg/dL (15-30); Sodium 139 mmol/L (135-145); Total Protein 7.5 g/dL (6.5-8.0)
[2025-01-25] MEDS: 0.9 % Sodium Chloride 1,000 ML 999 ML IVCONT (18:46)
[2025-01-25 19:00] LABS: Lactic Acid 5.4 mmol/L (0.5-2.0)
[2025-01-25] MEDS: Dextrose 5 % and Lactated Ring 1,000 ML 999 ML IVCONT (19:17)
[2025-01-25] MEDS: Thiamine HCL 100 MG TABLET PO (19:17)
[2025-01-25] MEDS: Folic Acid 1 MG TABLET PO (19:17)
--- NOTE | 2025-01-25 19:23 | PC.NURSE ---
assumed care for pt at this itme. pt a&o x3 speaking in full clear sentences. Pt denying SI/HI at this time. Pt is tearful and feels betrayed by her aunt. Pt denying any symptoms at this time. Pt states she has chronic low bp due to her anemia. Medicated pt per mar, pts call [facility] within reach. plan of care ongoing
[2025-01-25 19:28] LABS: VBG Base Excess -10.7 mmol/L; VBG HCO3 14 mmol/L (22-26); VBG pCO2 30 mmHg; VBG pH 7.28 (7.32-7.43); VBG pO2 43 mmHg
[2025-01-25 19:30] LABS: Venous Blood Gas Refer to POC result
[2025-01-25 19:50] LABS: Appearance Urine Clear; Color Urine Yellow; Glucose Urine UA Negative (Negative); Leukocyte Esterase Urine Negative (Negative); Nitrite Urine Negative (Negative); PH 6.5 (5.0-9.0); Specific Gravity - Urine <= 1.005 (1.005-1.025); UMIC TRIGGER UACC YES; Urine Blood Small (1+) (Negative); Urine Ketones Trace mg/dL (Negative); Urine Protein 100 (2+) mg/dL (Neg-Trace)
[2025-01-25 19:56] LABS: Bacteria Urine None Seen (None Seen); Hyaline Casts Urine 0-2 /LPF (0-2); RBC Urine 0-2 /HPF (0-2); WBC Urine 0-5 /HPF (0-5)
[2025-01-25 19:59] LABS: Amphetamine Screen Urine Not Detected (Not Detect); Barbiturates, Urine Not Detected (Not Detect); Benzodiazepines Screen Urine Not Detected (Not Detect); Buprenorphine Scr Not Detected (Not Detect); Cannabinoid Screen Urine POSITIVE (Not Detect); Cocaine Screen Urine Not Detected (Not Detect); Fentanyl, urine Not Detected (Not Detect); Methadone Screen, Urine Not Detected (Not Detect); Opiate Screen Urine Not Detected (Not Detect); Oxycodone Screen Urine Not Detected (Not Detect); Phencyclidine Screen Urine Not Detected (Not Detect)
[2025-01-25 20:38] LABS: HCG Quantitative < 2 mIU/mL
[2025-01-25 20:41] LABS: Reflex Lactate? Lactic Acid Added
--- NOTE | 2025-01-25 21:17 | MHC.EDTECH ---
Lactaid lab not needed- by provider. Patient will be getting discharged.
== END 2025-01-25 21:35 | disposition home or self-care (01) ==
PROVIDERS: Pathology Anatomic Pathology & Clinical Pathology; Physician Assistant Medical; Emergency Provider Emergency Medicine Emergency Medical Services
DX: F10.129 Alcohol abuse with intoxication, unspecified (principal); Y90.8 Blood alcohol level of 240 mg/100 ml or more; E87.29 Other acidosis; F17.210 Nicotine dependence, cigarettes, uncomplicated; Z79.899 Other long term (current) drug therapy
CPT/HCPCS: 36415; 80053; 80143; 80179; 80307; 81001; 82550; 82803; 83605; 84484; 84702; 85025; 86850; 86900; 86901; 87040; 93005; 96361; 96365; 99285

== ENCOUNTER → 2025-01-25 18:08 | Outpatient (BNV) | payer SELFPAY | PROVIDERS: Emergency Provider Emergency Medicine Emergency Medical Services; Visit Provider Internal Medicine Cardiovascular Disease | DX: R03.1 Nonspecific low blood-pressure reading (principal) | CPT/HCPCS: 93010 ==